=== PATIENT | female | born 1975 | race Caucasian/White ===

== ENCOUNTER → 2019-05-23 16:59 | Outpatient (CLI) | payer BC, SELFPAY ==
[2019-05-23 17:56] LABS: Absolute Lymphocyte Count 3.26 X10^3/uL (0.83-4.51); Absolute Neutrophil Count 11.2 X10^3/uL (2.0-7.7); Basophil# 0.05 X10^3/uL; Basophil% 0.3 % (0-1); Eosinophil# 0.19 X10^3/uL; Eosinophils% 1.2 % (0-5); Hematocrit 37.6 % (37-47); Hemoglobin 11.6 g/dL (12.0-15.0); Lymphocyte # 3.26 X10^3/ul (4.0); Lymphocyte % 20.7 % (19-41); Mean Corp Hgb Conc 30.9 g/dL (32-36); Mean Corpuscular Hgb 22.4 pg (27.0-32.0); Mean Corpuscular Volume 72.6 fL (81-99); Mean Platelet Vol. 9.4 fl (6.2-12.0); Monocyte# 0.92 X10^3/uL; Monocyte% 5.8 % (0-10); NRBC Flagged by Analyzer 0 % (0-5); Neutrophil # 11.22 X10^3/uL (2.7-7.7); Neutrophil % 71.4 % (47-70); Platelet Count 495 K/mm3 (150-450); RBC Distribution Width CV 14.5 % (11.6-14.6); RBC Distribution Width SD 37.2 fl (35.1-43.9); Red Blood Count 5.18 M/mm3 (4.2-5.4); White Blood Count 15.7 K/mm3 (4.4-11.0)
[2019-05-23 18:35] LABS: BUN 10 mg/dL (7-18); Creatinine, Serum 0.84 mg/dL (0.55-1.02); Glucose 95 mg/dL (74-106)
[2019-05-23 18:36] LABS: AST(SGOT) 12 U/L (15-37); Alanine Aminotransfer ALT/SGPT 20 U/L (13-56); Alkaline Phosphatase 75 U/L (45-117); Anion Gap 7 (5-15); BUN/Creat Ratio 11.9 RATIO (10-20); Bilirubin, Direct 0.09 mg/dL (0.00-0.30); Calcium,Total 9.3 mg/dL (8.5-10.1); Chloride 102 mmol/L (98-107); Cholesterol 129 mg/dL (200); EST Glomerular Filtration Rate 78 mL/min (>60); Est Glom Filt Rate - Afr Amer 95 mL/min (>60); Globulin 4.2 g/dL (2.2-4.2); High Density Lipoprotein 45 mg/dL; Potassium 3.3 mmol/L (3.5-5.1); Protein, Total 8.2 g/dL (6.4-8.2); Sodium Level 138 mmol/L (136-145); Triglycerides 117 mg/dL; Very Low Density Lipoprotein 23 mg/dL (5-40)
[2019-05-24 10:47] LABS: Hepatitis B Surface Antibody Non-Reactive; Hepatitis B Surface Antigen Non-Reactive (Nonreactive); Hepatitis C Antibody Non-Reactive (Nonreactive)
[2019-05-26 03:07] LABS: QNTFERON TB Mitogen Value > 10.00 IU/mL (.); QNTFERON TB Nil Value 0.11 IU/mL (.); QNTFERON TB1+ Ag Value 0.13 IU/mL (.)
[2019-05-26 09:53] LABS: Hepatitis B Core Ab Total Negative (Negative); QNTIFERON TB Positive Criteria Negative (Negative)
== END ==
PROVIDERS: Referring Provider Dermatology Pediatric Dermatology; Visit Provider Dermatology Pediatric Dermatology
DX: L40.0 Psoriasis vulgaris (principal); L40.59 Other psoriatic arthropathy; Z79.899 Other long term (current) drug therapy
CPT/HCPCS: 36415; 80053; 80061; 82248; 85025; 86480; 86704; 86706; 86803; 87340

== ENCOUNTER → 2020-04-08 16:26 | Outpatient (CLI) | payer BC, SELFPAY ==
[2020-04-11 03:07] LABS: QNTFERON TB Mitogen Value > 10.00 IU/mL (.); QNTFERON TB Nil Value 0.01 IU/mL (.); QNTFERON TB1+ Ag Value 0.04 IU/mL (.); QNTFERON TB2+ Ag Value 0.03 IU/mL (.)
[2020-04-11 08:22] LABS: QNTIFERON TB Positive Criteria Negative (Negative)
== END ==
PROVIDERS: Referring Provider Dermatology; Visit Provider Dermatology
DX: L40.0 Psoriasis vulgaris (principal); L40.59 Other psoriatic arthropathy; Z79.899 Other long term (current) drug therapy
CPT/HCPCS: 36415; 86480

== ENCOUNTER → 2022-06-01 | Outpatient (CLI) | payer BC, SELFPAY ==
[2022-06-01 15:54] LABS: AST(SGOT) 17 U/L (15-37); Alanine Aminotransfer ALT/SGPT 32 U/L (13-56); Albumin, Serum 3.9 g/dL (3.2-5.0); Alkaline Phosphatase 75 U/L (45-117); Anion Gap 8 (5-15); BUN 18 mg/dL (7-18); BUN/Creat Ratio 20.3 RATIO (10-20); Calcium,Total 9.5 mg/dL (8.5-10.1); Chloride 97 mmol/L (98-107); Creatinine, Serum 0.89 mg/dL (0.55-1.02); EST Glomerular Filtration Rate 72 mL/min (>60); Est Glom Filt Rate - Afr Amer 88 mL/min (>60); Globulin 3.8 g/dL (2.2-4.2); Glucose 166 mg/dL (74-106); Potassium 3.3 mmol/L (3.5-5.1); Protein, Total 7.7 g/dL (6.4-8.2); Sodium Level 138 mmol/L (136-145)
[2022-06-01 17:40] LABS: Absolute Lymphocyte Count 2.58 X10^3/uL (0.83-4.51); Absolute Neutrophil Count 6.6 X10^3/uL (2.0-7.7); Basophil# 0.05 X10^3/uL; Basophil% 0.5 % (0-1); Eosinophil# 0.24 X10^3/uL; Eosinophils% 2.4 % (0-5); Hematocrit 40.2 % (37-47); Hemoglobin 12.7 g/dL (12.0-15.0); Lymphocyte # 2.58 X10^3/ul (0.83-4.51); Lymphocyte % 25.4 % (19-41); Mean Corp Hgb Conc 31.6 g/dL (32-36); Mean Corpuscular Hgb 26.2 pg (27.0-32.0); Mean Corpuscular Volume 82.9 fL (81-99); Mean Platelet Vol. 10.1 fl (6.2-12.0); Monocyte# 0.69 X10^3/uL; Monocyte% 6.8 % (0-10); NRBC Flagged by Analyzer 0.2 % (0-5); Neutrophil # 6.58 X10^3/uL (2.7-7.7); Neutrophil % 64.6 % (47-70); Platelet Count 349 K/mm3 (150-450); RBC Distribution Width CV 12.2 % (11.6-14.6); RBC Distribution Width SD 36.9 fl (35.1-43.9); Red Blood Count 4.85 M/mm3 (4.2-5.4); White Blood Count 10.2 K/mm3 (4.4-11.0)
[2022-06-03 18:07] LABS: QNTFERON TB Mitogen Value > 10.00 IU/mL (.); QNTFERON TB Nil Value 0 IU/mL (.); QNTFERON TB1+ Ag Value 0.04 IU/mL (.); QNTFERON TB2+ Ag Value 0.03 IU/mL (.)
[2022-06-03 20:56] LABS: Hepatitis B Core Ab Total Negative (Negative); QNTIFERON TB Positive Criteria Negative (Negative)
== END | disposition home or self-care (01) ==
LOC: MTLAB 12:36
PROVIDERS: PCP Nurse Practitioner Family; Referring Provider Dermatology Pediatric Dermatology; Visit Provider Dermatology Pediatric Dermatology
DX: L40.0 Psoriasis vulgaris (principal)
CPT/HCPCS: 36415; 80053; 85025; 86480; 86704

== ENCOUNTER → 2023-07-09 | Outpatient (CLI) | payer BC, SELFPAY ==
--- OUTSIDE RECORDS SUMMARY | 2023-07-09 16:37 | XMS RPT_ITS | CCD ---
Author Name Unknown Address [id number] [place] [address] Organization [facility] Care Team Providers Care Senior Marketing Manager Name Role Phone HEMA ONOFRE Gaurav Unavailable Unavailable LIZ MALAVE Unavailable Unavailable Unavailable Primary Care Provider Magaly Malave MD, Liz Reina Primary Care Provider [phone] Noling PEARL CUTTER.BODY PRESS OPERATORLiz Primary Care Provider Noling PEARL CUTTER.BODY PRESS OPERATORLiz Primary Care Provider Alok Cruz MD, Hodan Sena Unavailable [phone] Noling PEARL CUTTER.BODY PRESS OPERATORLiz Primary Care Provider Hodan Mejia MD Unavailable Steven Denis MD Unavailable NOLING, LIZ L Attending Unavailable NOLING, LIZ L Primary Care Unavailable STEVEN DENIS Referring Unavailable NOLING, LIZ L Primary Care Unavailable NOLING, LIZ L Attending Unavailable NOLING, LIZ L Primary Care Unavailable NOLING, LIZ L Primary Care Unavailable NOLING, LIZ L Attending Unavailable NOLING, LIZ L Primary Care Unavailable NOLING, LIZ L Referring Unavailable NOLING, LIZ L Primary Care Unavailable STEVEN DENIS Referring Unavailable NOLING, LIZ L Primary Care Unavailable TREVON ARTHUR Referring Unavailable NOLING, LIZ L Primary Care Unavailable NOLING, LIZ L Primary Care Unavailable NOLING, LIZ L Referring Unavailable NOLING, LIZ L Primary Care Unavailable NOLING, LIZ L Referring Unavailable NOLING, LIZ L Primary Care Unavailable STEVEN DENIS Referring Unavailable NOLING, LIZ L Primary Care Unavailable Allergies Allergy Classification Reported Allergen(s) Allergy Type Date of Onset Reaction(s) Facility (20 sources) Lisinopril; Translations: [LISINOPRIL] Drug Allergy 04-16-2020 Cough [facility] (20 sources) SUMAtriptan; Translations: [SUMATRIPTAN SUCCINATE] Drug Allergy 04-08-2016 Anaphylaxis [facility] Medications Current Medications Medication Drug Class(es) Dates Sig (Normalized) Sig (Original) amoxicillin 875 mg / clavulanate 125 mg oral tablet (1 source) Penicillin-class Antibacterial Start: 04-16-2022 End: 04-23-2022 take 1 tablet by mouth twice daily amoxicillin-clav ulanic acid (AUGMENTIN) 875-125 mg per tablet Take 1 tablet by mouth twice daily for 7 days. 14 tablet 0 04/16/2022 04/23/2022 Active Completed/Discontinued Medications Medication Drug Class(es) Dates Sig (Normalized) Sig (Original) [id number] 200 actuat albuterol 0.09 mg/actuat metered dose inhaler (16 sources) beta2-Adrenergic Agonist Start: 04-20-2022 End: 04-23-2023 take 2 puff(s) by inhalation every four hours as needed for wheezing albuterol HFA (PROVENTIL HFA, VENTOLIN HFA) 90 mcg/actuation inhaler Inhale 2 Puffs as instructed every 4 hours as needed for wheezing/shortness of breath. 1 Each 1 04/20/2022 04/23/2023 Discontinued Problems Active Problems Problem Classification Problem Date Documented Date Episodic/Chronic Adjustment disorders (17 sources) Reactive depression (situational); Translations: [Adjustment disorder with depressed mood] Onset: 02-16-2020 05-01-2022 Chronic Anxiety disorders (20 sources) Generalized anxiety disorder; Translations: [Generalized anxiety disorder] Onset: 04-08-2016 Chronic Attention-deficit, conduct, and disruptive behavior disorders (5 sources) Adult attention deficit hyperactivity disorder ; Translations: [Attention-deficit hyperactivity disorder, unspecified type] Chronic Attention-deficit, conduct, and disruptive behavior disorders (20 sources) Attention deficit hyperactivity disorder, predominantly inattentive type; Translations: [Attention-deficit hyperactivity disorder, predominantly inattentive type] Onset: 04-29-2018 Chronic Attention-deficit, conduct, and disruptive behavior disorders (1 source) Attention-deficit hyperactivity disorder, predominantly inattentive type; Translations: [Attention deficit hyperactivity disorder (ADHD), predominantly inattentive type] Onset: 05-01-2022 Chronic Chronic ulcer of skin (1 source) Pressure ulcer of unspecified ankle, unspecified stage; Translations: [Controlled type 2 diabetes mellitus with pressure ulcer of ankle (HCC)] Onset: 05-12-2023 Chronic Deficiency and other anemia (19 sources) Iron deficiency anemia; Translations: [Iron deficiency anemia, unspecified] Onset: 04-08-2016 Episodic Diabetes mellitus with complications (20 sources) Type 2 diabetes mellitus; Translations: [Type 2 diabetes mellitus with hyperglycemia] Onset: 12-31-2016 Chronic Diabetes mellitus without complication (2 sources) Type 2 diabetes mellitus without complications; Translations: [Controlled type 2 diabetes mellitus with pressure ulcer of ankle (HCC)] Onset: 08-01-2022 Chronic Disorders of lipid metabolism (20 sources) Mixed hyperlipidemia; Translations: [Mixed hyperlipidemia] Onset: 04-08-2016 Chronic Essential hypertension (20 sources) Benign essential hypertension; Translations: [Essential (primary) hypertension] Onset: 08-22-2019 Chronic Joint disorders and dislocations; trauma-related (17 sources) Chondromalacia of patella; Translations: [Chondromalacia patellae, unspecified knee] Onset: 04-08-2016 05-01-2022 Chronic Miscellaneous mental health disorders (20 sources) Binge eating disorder; Translations: [Binge eating disorder] Onset: 04-29-2018 Chronic Nutritional deficiencies (20 sources) Vitamin D deficiency; Translations: [Vitamin D deficiency, unspecified] Onset: 12-01-2021 Chronic Other circulatory disease (17 sources) Raynaud's disease; Translations: [Raynaud's syndrome without gangrene] Onset: 04-08-2016 05-01-2022 Chronic Other connective tissue disease (1 source) Muscle spasm of cervical muscle of neck; Translations: [Other muscle spasm] Episodic Other endocrine disorders (17 sources) Polycystic ovary; Translations: [Polycystic ovarian syndrome] Onset: 04-08-2016 05-01-2022 Chronic Other inflammatory condition of skin (17 sources) Pustular psoriasis; Translations: [Generalized pustular psoriasis] Onset: 12-26-2018 05-01-2022 Chronic Other nutritional; endocrine; and metabolic disorders (19 sources) Severe obesity; Translations: [Morbid (severe) obesity due to excess calories] Chronic Other nutritional; endocrine; and metabolic disorders (17 sources) Body mass index 40+ - severely obese; Translations: [Body mass index (BMI) 40.0-44.9, adult] Onset: 11-25-2018 05-01-2022 Chronic Other nutritional; endocrine; and metabolic disorders (1 source) Morbid (severe) obesity due to excess calories; Translations: [Class 2 severe obesity due to excess calories with serious comorbidity and body mass index (BMI) of 35.0 to 35.9 in adult] Onset: 04-23-2023 Chronic Other nutritional; endocrine; and metabolic disorders (1 source) Body mass index (BMI) 35.0-35.9, adult; Translations: [Class 2 severe obesity due to excess calories with serious comorbidity and body mass index (BMI) of 35.0 to 35.9 in adult] Onset: 04-23-2023 Chronic Other nutritional; endocrine; and metabolic disorders (1 source) Body mass index (BMI) 40.0-44.9, adult; Translations: [Body mass index 40.0-44.9, adult ([facility])] Onset: 05-01-2022 Chronic Other upper respiratory infections (1 source) Acute upper respiratory infection, unspecified; Translations: [Upper respiratory tract infection, unspecified type] Onset: 06-18-2023 Episodic Otitis media and related conditions (1 source) Otitis media, unspecified, right ear; Translations: [Acute otitis media, right] Onset: 06-18-2023 Episodic Residual codes; unclassified (18 sources) Obstructive sleep apnea syndrome; Translations: [Obstructive sleep apnea (adult) (pediatric)] Onset: 06-09-2016 Chronic Residual codes; unclassified (17 sources) Primary central sleep apnea; Translations: [Primary central sleep apnea] Onset: 06-17-2016 05-01-2022 Chronic Rheumatoid arthritis and related disease (1 source) Ankylosing spondylitis of unspecified sites in spine; Translations: [Ankylosing spondylitis, unspecified site of spine ([facility])] Onset: 08-06-2022 Chronic Spondylosis; intervertebral disc disorders; other back problems (9 sources) Degeneration of lumbar intervertebral disc; Translations: [Other intervertebral disc degeneration, lumbar region] Onset: 01-29-2023 01-29-2023 Chronic Thyroid disorders (20 sources) Hypothyroidism; Translations: [Hypothyroidism, unspecified] Onset: 04-08-2016 Chronic Unclassified (1 source) Pain in other specified joint; Translations: [Pain in other specified joint] Onset: 08-06-2022 Unclassified (1 source) Acute midline low back pain without sciatica; Translations: [Acute midline low back pain without sciatica] Onset: 06-19-2022 Past or Other Problems Problem Classification Problem Date Documented Date Episodic/Chronic Deficiency and other anemia (1 source) Iron deficiency anemia, unspecified; Translations: [Iron deficiency anemia, unspecified iron deficiency anemia type] Onset: 05-01-2022 Episodic Fluid and electrolyte disorders (20 sources) Hypokalemia; Translations: [Hypokalemia] Onset: 02-19-2020 Episodic Genitourinary symptoms and ill-defined conditions (18 sources) Microalbuminuria; Translations: [Proteinuria, unspecified] Onset: 11-07-2019 Episodic Other aftercare (12 sources) Patient encounter status; Translations: [Encounter for therapeutic drug level monitoring] Onset: 04-29-2018 05-01-2022 Episodic Other connective tissue disease (17 sources) Bilateral plantar fasciitis; Translations: [Plantar fascial fibromatosis] Onset: 06-22-2017 05-01-2022 Episodic Other connective tissue disease (15 sources) Pain of bilateral hands; Translations: [Pain in right hand] Onset: 06-19-2022 Episodic Other connective tissue disease (1 source) Pain in right hand; Translations: [Bilateral hand pain] Onset: 06-19-2022 Episodic Other connective tissue disease (1 source) Pain in left hand; Translations: [Bilateral hand pain] Onset: 06-19-2022 Episodic Other non-traumatic joint disorders (15 sources) Hip pain; Translations: [Pain in right hip] Onset: 06-19-2022 Episodic Other non-traumatic joint disorders (8 sources) Shoulder pain; Translations: [Pain in right shoulder] Onset: 06-19-2022 06-19-2022 Episodic Other non-traumatic joint disorders (6 sources) Pain in right shoulder; Translations: [Pain in joint, shoulder region] Onset: 06-19-2022 06-19-2022 Episodic Other non-traumatic joint disorders (1 source) Pain in right hip; Translations: [Bilateral hip pain] Onset: 06-19-2022 Episodic Other non-traumatic joint disorders (1 source) Pain in left hip; Translations: [Bilateral hip pain] Onset: 06-19-2022 Episodic Other screening for suspected conditions (not mental disorders or infectious disease) (1 source) Encounter for screening mammogram for malignant neoplasm of breast; Translations: [Encounter for screening mammogram for breast cancer] Onset: 11-06-2022 Episodic Residual codes; unclassified (17 sources) Family history of malignant neoplasm of gastrointestinal tract; Translations: [Family history of malignant neoplasm of digestive organs] Onset: 04-08-2016 05-01-2022 Episodic Residual codes; unclassified (1 source) Edema Onset: 08-21-2022 Episodic Spondylosis; intervertebral disc disorders; other back problems (15 sources) Acute low back pain; Translations: [Acute midline low back pain without sciatica] Onset: 06-19-2022 Episodic Viral infection (17 sources) Plane wart; Translations: [Other viral warts] Onset: 10-06-2021 05-01-2022 Episodic Results Test Name Value Interpretation Reference Range Facil ity Vital Signs Date Time Vital Sign Value Performing Clinician Brandon [email or web address] 04-23-2023 12:06-0500 Body weight 94.62 kg Liz Whitfield PEARL CUTTER.TAINA Work Phone: [facility] 04-23-2023 12:06-0500 Diastolic blood pressure 76 mm[Hg] Liz Whitfield PEARL CUTTER.TAINA Work Phone: [facility] 04-23-2023 12:06-0500 Heart rate 75 /min Liz Whitfield PEARL CUTTER.BODY PRESS OPERATOR Work Phone: [facility] 04-23-2023 12:06-0500 SaO2% (BldA) [Mass fraction] 98 % Lizlauryn Whitfield PEARL CUTTER.TAINA Work Phone: [facility] 04-23-2023 12:06-0500 Systolic blood pressure 100 mm[Hg] Liz Whitfield PEARL CUTTER.TAINA Work Phone: [facility] 01-29-2023 10:49-0400 Body height 162.6 cm Liz Noling PEARL CUTTER.BODY PRESS OPERATOR Work Phone: [facility] 01-29-2023 10:49-0400 Body temperature 98.29 [degF] Liz Noling PEARL CUTTER.BODY PRESS OPERATOR Work Phone: [facility] 01-29-2023 10:49-0400 Body weight 114.31 kg Liz Noling PEARL CUTTER.BODY PRESS OPERATOR Work Phone: [facility] 01-29-2023 10:49-0400 Diastolic blood pressure 68 mm[Hg] Liz Noling PEARL CUTTER.BODY PRESS OPERATOR Work Phone: [facility] 01-29-2023 10:49-0400 Heart rate 76 /min Liz Noling PEARL CUTTER.BODY PRESS OPERATOR Work Phone: [facility] 01-29-2023 10:49-0400 SaO2% (BldA) [Mass fraction] 97 % Liz Noling PEARL CUTTER.BODY PRESS OPERATOR Work Phone: [facility] 01-29-2023 10:49-0400 Systolic blood pressure 110 mm[Hg] Liz Noling PEARL CUTTER.BODY PRESS OPERATOR Work Phone: [facility] 05-01-2022 08:04-0500 Body height 162.6 cm Liz Noling PEARL CUTTER.BODY PRESS OPERATOR Work Phone: [facility] 05-01-2022 08:04-0500 Body weight 115.67 kg Liz Noling PEARL CUTTER.BODY PRESS OPERATOR Work Phone: [facility] 05-01-2022 08:04-0500 Diastolic blood pressure 76 mm[Hg] Liz Noling PEARL CUTTER.BODY PRESS OPERATOR Work Phone: [facility] 05-01-2022 08:04-0500 Heart rate 78 /min Liz Noling PEARL CUTTER.BODY PRESS OPERATOR Work Phone: [facility] 05-01-2022 08:04-0500 SaO2% (BldA) [Mass fraction] 97 % Liz Noling PEARL CUTTER.BODY PRESS OPERATOR Work Phone: [facility] 05-01-2022 08:04-0500 Systolic blood pressure 120 mm[Hg] Liz Noling PEARL CUTTER.BODY PRESS OPERATOR Work Phone: [facility] 11-07-2021 17:04-0400 Body temperature 98.1 [degF] Liz Noling PEARL CUTTER.BODY PRESS OPERATOR Work Phone: [facility] 11-07-2021 17:04-0400 Body weight 109.77 kg Liz Noling PEARL CUTTER.BODY PRESS OPERATOR Work Phone: [facility] 11-07-2021 17:04-0400 Diastolic blood pressure 64 mm[Hg] Liz Noling PEARL CUTTER.BODY PRESS OPERATOR Work Phone: [facility] 11-07-2021 17:04-0400 Heart rate 85 /min Liz Noling PEARL CUTTER.BODY PRESS OPERATOR Work Phone: [facility] 11-07-2021 17:04-0400 SaO2% (BldA) [Mass fraction] 98 % Liz Noling PEARL CUTTER.BODY PRESS OPERATOR Work Phone: [facility] 11-07-2021 17:04-0400 Systolic blood pressure 118 mm[Hg] Liz Noling PEARL CUTTER.BODY PRESS OPERATOR Work Phone: [facility] Encounters Encounter Date Encounter Type Care Provider Facility Start: 06-18-2023 End: 06-18-2023 ambulatory LIZ L NOLING Facility:[id number] Start: 05-12-2023 End: 05-12-2023 ambulatory LIZ L NOLING Facility:[id number] Start: 04-23-2023 End: 04-23-2023 ambulatory LIZ L NOLING Facility:[id number] Start: 04-23-2023 End: 04-23-2023 Office outpatient visit 25 minutes Liz L Noling PEARL CUTTER.BODY PRESS OPERATOR Work Phone: [facility] Procedures Date Procedure Procedure Detail Performing Clinician Start: 11-06-2022 Mammography [facility] Provid er Start: 06-23-2022 Radex hips bilateral with pelvis minimum 5 views Liz L Noling PEARL CUTTER.BODY PRESS OPERATOR Work Phone: Start: 12-25-2021 Colonoscopy Liz Kylerhandy carpio APRN.TAINA Work Phone: Start: 09-30-2020 Mammography Liz Kylerhandy carpio APRN.TAINA Work Phone: Plan of Treatment Date Care Activity Detail Author Start: 12-01-2026 LIPID SCREEN LIPID SCREEN [facility] Start: 11-07-2026 HPV TESTING HPV TESTING [facility] Start: 11-07-2026 PAP TESTING PAP TESTING [facility] Start: 04-02-2025 DIABETES SCREEN DIABETES SCREEN [facility] Start: 12-24-2024 DIABETES SCREEN DIABETES SCREEN [facility] Start: 12-01-2024 DIABETES SCREEN DIABETES SCREEN [facility] Start: 04-23-2024 Annual PCP Team Brand Planner michael Disease Visit Annual PCP Team Chronic Disease Visit [facility] Start: 04-23-2024 BP Controlled (<130/80) BP Controlle d (<130/80) [facility] Start: 04-20-2024 Hepatitis C antibody , confirmatory test Dilated Retinal Exam [facility] Start: 01-30-2024 ANNUAL PCP TEAM BUDGET ASSISTANT MICHAEL DISEASE VISIT ANNUAL PCP TEAM CHRONIC DISEASE VISIT [facility] Start: 01-30-2024 BP CONTROLLED (<130/80) BP CONTROLLE D (<130/80) [facility] Start: 12-12-2023 Influenza vaccination Influenza Vacc ine (#1) [facility] Payers Date Payer Category Payer Unknown [employer] PPO OOS [id number] 2021-Present [phone] [address] [place] [address] PPO [id number] 2021 Unknown [employer] PPO OOS [id number] 2021-Present [phone] [address] [place] [address] PPO [id number] 2021 Unknown [id number] 2018 Unknown [id number] Social History Date Type Detail Facility Tobacco smoking stat us MDIS Tobacco smoking consumption unknown [facility] Start: 1975 Sex Assigned At Not on file [facility] Start: 10-28-2021 End: 04-16-2022 Exposure to SARS-CoV-2 (event) Not sure [facility] Start: 01-14-2022 End: 04-16-2022 Tobacco smoking status NHIS Ex-smoker [facility] History of tobacco use Current smoker [facility] Start: 04-16-2022 Tobacco use and exposure Smoke less tobacco non-user [facility] Start: 04-16-2022 End: 04-23-2023 Alcohol intake Lifetime non-drinker (finding) [facility] Start: 04-21-2022 End: 05-01-2022 Exposure to SARS-CoV-2 (event) Yes [facility] Start: 11-06-2022 End: 01-29-2023 History of Social function [facility] Start: 11-06-2022 End: 01-29-2023 Tobacco use panel [facility] National Score (1-10 0), lower number is lower risk 69 [facility] Start: 1975 Sex Assigned At Female C [facility] Start: 04-16-2023 Gender identity Identifies as female gender (finding) [facility] Start: 04-16-2023 Sexual orientation Heterosexual (celso stuart) [facility] Medical Equipment Procedure Code Equipment Code Equipment Origin al Text Equipment Identifier Dates once daily. Start: 05-04-2022 Clinical Notes 11-25-2018 to 06-18-2023 Patient InstructionsLiz Whitfield APRN.CNP - 04/23/2023 12:38 PM ESTTelephone Encounter - Angela Marie MA - 04/09/2023 4:14 PM EDTPatient InstructionsPatient Instructions Note Date & Type Note Facility 06-18-2023 Note HNO ID: [id number] Author: LIZ WHITFIELD APRN.CNP Service: ? Author Type: Nurse Practitioner Type: Progress Notes Filed: 06/18/2023 15:52 Note Text: Lamont Rosenthal is a 47 year old female who presents with Acute Visit (Pt said sx's started in April. She wasn't able to taste or smell. She has yellow/green thick mucus,headache,sore throat white white spots,congestion and slight cough. She is using Flonase. ) Lamont presents today with c/o sinus congestion, nasal drainage, headache. Denies cough, N/V/D. Nasal drainage clear/yellow/green. Denies fever/chills. Tested negative for COVID about 3 days ago. Has had a lot of co-workers out with COVID. The history is provided by the patient. Hemoglobin A1C Date Value Ref Range Status 05/12/2023 5.9 (H) 4.3 - 5.6 % Final Comment: [place] [employer] guidelines indicate that patients with HgbA1c in the range 5.7-6.4% are at increased risk for development of diabetes, and intervention by lifestyle modification may be beneficial. HgbA1c greater or equal to 6.5% is considered diagnostic of diabetes. 01/15/2023 5.8 4.3 - 6.0 % Final Comment: [place] [employer] guidelines indicate that patients with HgbA1c in the range 5.7-6.4% are at increased risk for development of diabetes, and intervention by lifestyle modification may be beneficial. HgbA1c greater or equal to 6.5% is considered diagnostic of diabetes. TSH Date Value Ref Range Status 05/12/2023 0.293 (L) 0.358 - 3.740 mIU/L Final Comment: 3rd generation ultra sensitive TSH. 03/26/2023 0.053 (L) 0.358 - 3.740 mIU/L Final Comment: 3rd generation ultra sensitive TSH. Albumin, Urine Random Date Value Ref Range Status 10/23/2022 8.0 0.0 - 19.0 mg/L Final Microalbumin, Urine Random Date Value Ref Range Status 09/29/2021 10.0 0.0 - 19.0 MG/L Final PAST MEDICAL HISTORY Diagnosis Date Depression Diabetes (HCC) SHAVON (generalized anxiety disorder) Hypertension Obesity CHICHI (obstructive sleep apnea) Thyroid disease ACTIVE PROBLEM LIST Type 2 Diabetes Mellitus With Hyperglycemia (Hcc) Vitamin D Deficiency, Unspecified Attention Deficit Hyperactivity Disorder (Adhd), Predominantly Inattentive Type Benign Essential Hypertension Binge Eating Disorder Chondromalacia of Patella Diabetic Peripheral Neuropathy (Hcc) Family History of Malignant Neoplasm of Gastrointestinal Tract Flat Wart Generalized Anxiety Disorder Obsessive-Compulsive Disorder Hypokalemia Hyperlipidemia Idiopathic Central Sleep Apnea Iron Deficiency Anemia Microalbuminuria Plantar Fasciitis, Bilateral Polycystic Ovaries Pustular Psoriasis Raynaud's Syndrome Goiter Hypothyroidism Unspecified Situational Depression Sleep Apnea, Obstructive Class 2 severe obesity due to excess calories with serious comorbidity and body mass index (BMI) of 35.0 to 35.9 in adult Bilateral Hip Pain Bilateral Hand Pain Acute Pain of Right Shoulder Acute Midline Low Back Pain Without Sciatica Ddd (Degenerative Disc Disease), Lumbar Current Outpatient Medications Medication Sig Dispense Refill levothyroxine (SYNTHROID) 125 mcg tablet Take 1 tablet by mouth every afternoon. MOUNJARO 10 mg/0.5 mL pen injector Inject 10 mg subcutaneously one time a week. lisdexamfetamine (VYVANSE) 40 mg capsule Take 1 capsule by mouth once daily for 30 days. 30 capsule 0 busPIRone (BUSPAR) 15 mg tablet Take 1 tablet by mouth once daily 30 tablet 3 amoxicillin (AMOXIL) 500 mg capsule Take 1 capsule by mouth as directed. gabapentin (NEURONTIN) 100 mg capsule Take 1 capsule by mouth at bedtime 30 capsule 5 triamterene-hydroCHLOROthiazide (MAXZIDE) 75-50 mg per tablet Take 1 tablet by mouth once daily 90 tablet 3 ezetimibe (ZETIA) 10 mg tablet Take 1 tablet by mouth once daily 30 tablet 5 meloxicam (MOBIC) 15 mg tablet Take 1 tablet by mouth once daily as needed. 30 tablet 1 losartan (COZAAR) 25 mg tablet Take 1 tablet by mouth once daily 30 tablet 5 sertraline (ZOLOFT) 100 mg tablet Take 1 tablet by mouth once daily 30 tablet 5 simvastatin (ZOCOR) 20 mg tablet Take 1 tablet by mouth daily at bedtime. 90 tablet 1 metFORMIN (GLUCOPHAGE) 500 mg tablet Take 1 tablet by mouth twice daily. PREMIER TEST STRIP test strip once daily. benzonatate (TESSALON PERLES) 100 mg capsule Take 2 capsules by mouth three times daily as needed for cough. 30 capsule 1 clobetasol (TEMOVATE) 0.05 % cream clobetasol 0.05 % topical cream potassium chloride (K-TAB) 10 mEq tablet Take 2 tablets by mouth twice daily. 180 tablet 3 vitamin B complex (B COMPLEX 1 ORAL) Take 1 tablet by mouth once daily. ascorbic acid, vitamin C, (VITAMIN C) 500 mg tablet Take 1 tablet by mouth once daily. amitriptyline (ELAVIL) 25 mg tablet Take 1 tablet by mouth daily at bedtime. aspirin, enteric coated (ASPIRIN, ENTERIC COATED) 81 mg EC tablet Take 1 tablet by mouth once daily. betamethasone dipropionate 0 (more content not included)... 04-23-2023 Note HNO ID: [id number] Author: Liz Whitfield APRN.BODY PRESS OPERATOR Service: ? Author Type: Nurse Practitioner Type: Progress Notes Filed: 04/23/2023 8:12 PM Note Text: Lamont Rosenthal is a 47 year old female who presents with Follow Up (3 month /Patient denies flu vaccine ) Lamont presents today for 3 mo f/u HTN, HLD, ADHD, anxiety, DDD, CHICHI. ADHD and BED- doing well on Vyvanse. States dose is adequate. On Munjaro from endocrinology. Has been working on losing weight intentionally, watching diet and walking more. Continues to have significant joint pain, unchanged with weight loss. Not taking meloxicam because she is worried about SE. When she has taken it, it does work well for her. HTN- has not been checking BP at home, but has started noticing some dizziness at times since losing a lot of weight. CHICHI- compliant on CPAP, working well. Anxiety- doing very well right now The history is provided by the patient. Hemoglobin A1C Date Value Ref Range Status 01/15/2023 5.8 4.3 - 6.0 % Final Comment: [place] [employer] guidelines indicate that patients with HgbA1c in the range 5.7-6.4% are at increased risk for development of diabetes, and intervention by lifestyle modification may be beneficial. HgbA1c greater or equal to 6.5% is considered diagnostic of diabetes. 10/23/2022 6.2 (H) 4.3 - 6.0 % Final Comment: [place] [employer] guidelines indicate that patients with HgbA1c in the range 5.7-6.4% are at increased risk for development of diabetes, and intervention by lifestyle modification may be beneficial. HgbA1c greater or equal to 6.5% is considered diagnostic of diabetes. TSH Date Value Ref Range Status 03/26/2023 0.053 (L) 0.358 - 3.740 mIU/L Final Comment: 3rd generation ultra sensitive TSH. 01/15/2023 0.048 (L) 0.358 - 3.740 mIU/L Final Comment: 3rd generation ultra sensitive TSH. Albumin, Urine Random Date Value Ref Range Status 10/23/2022 8.0 0.0 - 19.0 mg/L Final Microalbumin, Urine Random Date Value Ref Range Status 09/29/2021 10.0 0.0 - 19.0 MG/L Final PAST MEDICAL HISTORY Diagnosis Date Depression Diabetes ([facility]) SHAVON (generalized anxiety disorder) Hypertension Obesity CHICHI (obstructive sleep apnea) Thyroid disease ACTIVE PROBLEM LIST Type 2 Diabetes Mellitus With Hyperglycemia ([facility]) Vitamin D Deficiency, Unspecified Attention Deficit Hyperactivity Disorder (Adhd), Predominantly Inattentive Type Benign Essential Hypertension Binge Eating Disorder Body Mass Index 40.0-44.9, Adult ([facility]) Chondromalacia of Patella Diabetic Peripheral Neuropathy ([facility]) Family History of Malignant Neoplasm of Gastrointestinal Tract Flat Wart Generalized Anxiety Disorder Obsessive-Compulsive Disorder Hypokalemia Hyperlipidemia Idiopathic Central Sleep Apnea Iron Deficiency Anemia Microalbuminuria Plantar Fasciitis, Bilateral Polycystic Ovaries Pustular Psoriasis Raynaud's Syndrome Goiter Hypothyroidism Unspecified Situational Depression Sleep Apnea, Obstructive Class 3 Severe Obesity Due to Excess Calories With Serious Comorbidity and Body Mass Index (Bmi) of 40.0 to 44.9 in Adult ([facility]) Bilateral Hip Pain Bilateral Hand Pain Acute Pain of Right Shoulder Acute Midline Low Back Pain Without Sciatica Ddd (Degenerative Disc Disease), Lumbar Current Outpatient Medications Medication Sig Dispense Refill amoxicillin (AMOXIL) 500 mg capsule Take 1 capsule by mouth as directed. busPIRone (BUSPAR) 15 mg tablet Take 1 tablet by mouth every afternoon. gabapentin (NEURONTIN) 100 mg capsule Take 1 capsule by mouth at bedtime 30 capsule 5 lisdexamfetamine (VYVANSE) 40 mg capsule Take 1 capsule by mouth once daily for 30 days. 30 capsule 0 triamterene-hydroCHLOROthiazide (MAXZIDE) 75-50 mg per tablet Take 1 tablet by mouth once daily 90 tablet 3 ezetimibe (ZETIA) 10 mg tablet Take 1 tablet by mouth once daily 30 tablet 5 MOUNJARO 7.5 mg/0.5 mL pen injector MOUNJARO 5 mg/0.5 mL pen injector MOUNJARO 2.5 mg/0.5 mL pen injector meloxicam (MOBIC) 15 mg tablet Take 1 tablet by mouth once daily as needed. 30 tablet 1 losartan (COZAAR) 25 mg tablet Take 1 tablet by mouth once daily 30 tablet 5 sertraline (ZOLOFT) 100 mg tablet Take 1 tablet by mouth once daily 30 tablet 5 simvastatin (ZOCOR) 20 mg tablet Take 1 tablet by mouth daily at bedtime. 90 tablet 1 metFORMIN (GLUCOPHAGE) 500 mg tablet Take 1 tablet by mouth twice daily. levothyroxine (SYNTHROID) 175 mcg tablet TAKE 1 TABLET BY MOUTH ONCE DAILY IN THE MORNING PREMIER TEST STRIP test strip once daily. benzonatate (TESSALON PERLES) 100 mg capsule Take 2 capsules by mouth three times daily as needed for cough. 30 capsule 1 clobetasol (TEMOVATE) 0.05 % cream clobetasol 0.05 % topical cream potassium chloride (K-TAB) 10 mEq tablet Take 2 tablets by mouth twice daily. 180 tablet 3 vitamin B complex (B COMPLEX 1 ORAL) Take 1 tablet by mouth once ame (more content not included)... 04-23-2023 Instructions Liz Whitfield APRN.CNP - 04/23/2023 1:02 PM EST Have fasting labs drawn Check BP at home at least a few times a week and send message with readings in a few weeks Take meloxicam!!!! It is NOT addictive or habit forming. Continue current meds documented in this encounter [facility] 04-23-2023 History of Presen t illness Narrative Lamont Rosenthal is a 47 year old female who presents with Follow Up (3 month /Patient denies flu vaccine ) Lamont presents today for 3 mo f/u HTN, HLD, ADHD, anxiety, DDD, CHICHI. ADHD and BED- doing well on Vyvanse. States dose is adequate. On Munjaro from endocrinology. Has been working on losing weight intentionally, watching diet and walking more. Continues to have significant joint pain, unchanged with weight loss. Not taking meloxicam because she is worried about SE. When she has taken it, it does work well for her. HTN- has not been checking BP at home, but has started noticing some dizziness at times since losing a lot of weight. CHICHI- compliant on CPAP, working well. Anxiety- doing very well right now The history is provided by the patient. Hemoglobin A1C Date Value Ref Range Status 01/15/2023 5.8 4.3 - 6.0 % Final Comment: [place] [employer] guidelines indicate that patients with HgbA1c in the range 5.7-6.4% are at increased risk for development of diabetes, and intervention by lifestyle modification may be beneficial. HgbA1c greater or equal to 6.5% is considered diagnostic of diabetes. 10/23/2022 6.2 (H) 4.3 - 6.0 % Final Comment: [place] [employer] guidelines indicate that patients with HgbA1c in the range 5.7-6.4% are at increased risk for development of diabetes, and intervention by lifestyle modification may be beneficial. HgbA1c greater or equal to 6.5% is considered diagnostic of diabetes. TSH Date Value Ref Range Status 03/26/2023 0.053 (L) 0.358 - 3.740 mIU/L Final Comment: 3rd generation ultra sensitive TSH. 01/15/2023 0.048 (L) 0.358 - 3.740 mIU/L Final Comment: 3rd generation ultra sensitive TSH. Albumin, Urine Random Date Value Ref Range Status 10/23/2022 8.0 0.0 - 19.0 mg/L Final Microalbumin, Urine Random Date Value Ref Range Status 09/29/2021 10.0 0.0 - 19.0 MG/L Final PAST MEDICAL HISTORY Diagnosis Date Depression Diabetes (HCC) SHAVON (generalized anxiety disorder) Hypertension Obesity CHICHI (obstructive sleep apnea) Thyroid disease ACTIVE PROBLEM LIST Type 2 Diabetes Mellitus With Hyperglycemia ([facility]) Vitamin D Deficiency, Unspecified Attention Deficit Hyperactivity Disorder (Adhd), Predominantly Inattentive Type Benign Essential Hypertension Binge Eating Disorder Body Mass Index 40.0-44.9, Adult ([facility]) Chondromalacia of Patella Diabetic Peripheral Neuropathy ([facility]) Family History of Malignant Neoplasm of Gastrointestinal Tract Flat Wart Generalized Anxiety Disorder Obsessive-Compulsive Disorder Hypokalemia Hyperlipidemia Idiopathic Central Sleep Apnea Iron Deficiency Anemia Microalbuminuria Plantar Fasciitis, Bilateral Polycystic Ovaries Pustular Psoriasis Raynaud's Syndrome Goiter Hypothyroidism Unspecified Situational Depression Sleep Apnea, Obstructive Class 3 Severe Obesity Due to Excess Calories With Serious Comorbidity and Body Mass Index (Bmi) of 40.0 to 44.9 in Adult ([facility]) Bilateral Hip Pain Bilateral Hand Pain Acute Pain of Right Shoulder Acute Midline Low Back Pain Without Sciatica Ddd (Degenerative Disc Disease), Lumbar Current Outpatient Medications Medication Sig Dispense Refill amoxicillin (AMOXIL) 500 mg capsule Take 1 capsule by mouth as directed. busPIRone (BUSPAR) 15 mg tablet Take 1 tablet by mouth every afternoon. gabapentin (NEURONTIN) 100 mg capsule Take 1 capsule by mouth at bedtime 30 capsule 5 lisdexamfetamine (VYVANSE) 40 mg capsule Take 1 capsule by mouth once daily for 30 days. 30 capsule 0 triamterene-hydroCHLOROthiazide (MAXZIDE) 75-50 mg per tablet Take 1 tablet by mouth once daily 90 tablet 3 ezetimibe (ZETIA) 10 mg tablet Take 1 tablet by mouth once daily 30 tablet 5 MOUNJARO 7.5 mg/0.5 mL pen injector MOUNJARO 5 mg/0.5 mL pen injector MOUNJARO 2.5 mg/0.5 mL pen injector meloxicam (MOBIC) 15 mg tablet Take 1 tablet by mouth once daily as needed. 30 tablet 1 losartan (COZAAR) 25 mg tablet Take 1 tablet by mouth once daily 30 tablet 5 sertraline (ZOLOFT) 100 mg tablet Take 1 tablet by mouth once daily 30 tablet 5 simvastatin (ZOCOR) 20 mg tablet Take 1 tablet by mouth daily at bedtime. 90 tablet 1 metFORMIN (GLUCOPHAGE) 500 mg tablet Take 1 tablet by mouth twice daily. levothyroxine (SYNTHROID) 175 mcg tablet TAKE 1 TABLET BY MOUTH ONCE DAILY IN THE MORNING PREMIER TEST STRIP test strip once daily. benzonatate (TESSALON PERLES) 100 mg capsule Take 2 capsules by mouth three times daily as needed for cough. 30 capsule 1 clobetasol (TEMOVATE) 0.05 % cream clobetasol 0.05 % topical cream potassium chloride (K-TAB) 10 mEq tablet Take 2 tablets by mouth twice daily. 180 tablet 3 vitamin B complex (B COMPLEX 1 ORAL) Take 1 tablet by mouth once daily. ascorbic acid, vitamin C, (VITAMIN C) 500 mg tablet Take 1 tablet by mouth once daily. amitriptyline (ELAVIL) 25 mg tablet Take 1 tablet by mouth daily at bedtime. aspirin, enteric coated (ASPIRIN, ENTERIC COATED) 81 mg EC tablet Take 1 tablet by mouth once daily. betamethasone dipropionate 0.05 % ointment Apply 30 g to affected area twice daily as needed. Biotin 10 mg tab Take 1 tablet by mouth once daily. Cholecalciferol, Vitamin D3, 125 mcg (5,000 unit) cap Take 1 capsule by mouth once daily. ferrous sulfate 325 mg (65 mg iron) tablet Take 1 tablet by mouth twice daily. TALTZ AUTOINJECTOR 80 mg/mL pen Inject 1 mL subcutaneously as directed. terbinafine HCl (LAMISIL) 250 mg tablet Take 250 mg by mouth once daily. No current facility-administered medications for this visit. Social History Tobacco Use Smoking status: Former Smokeless tobacco: Never Vaping Use Vaping Use: Never used Substance Use Topics Alcohol use: Never Drug use: Never FAMILY HISTORY Problem Relation Age of Onset Hypertension Mother Stroke Mother Diabetes Father Hypertension Father Heart disease Father Diabetes Sister Heart disease Sister Hypertension Sister Review of Systems BP 100/76 Pulse 75 Wt 208 lb 9.6 oz (94.6kg) SpO2 98% Physical Exam Vitals and nursing note reviewed. Constitutional: Appearance: Normal appearance. She is obese. Comments: Weight down 44# from last OV HENT: Head: Normocephalic and atraumatic. Ears: Comments: Grossly normal hearing Eyes: Pupils: Pupils are equal, round, and reactive to light. Cardiovascular: Rate and Rhythm: Normal rate and regular rhythm. Pulses: Normal pulses. Heart sounds: Normal heart sounds. No murmur heard. Pulmonary: Effort: Pulmonary effort is normal. Breath sounds: Normal breath sounds. Abdominal: General: Bowel sounds are normal. Palpations: Abdomen is soft. Musculoskeletal: General: Swelling and tenderness (TTP SI joints) present. Cervical back: Neck supple. Comments: Trace BL feet swelling Skin: General: Skin is warm and dry. Capillary Refill: Capillary refill takes less than 2 seconds. Findings: No lesion or rash. Comments: Dry skin on hands Neurological: General: No focal deficit present. Mental Status: She is alert and oriented to person, place, and time. Psychiatric: Mood and Affect: Mood normal. Behavior: Behavior normal. Comments: Pleasant, talkative Medications were reviewed and verified. Assessment & Plan ASSESSMENT/PLAN: 1. Benign essential hypertension - ICD9: 401.1, ICD10: I10 (primary diagnosis) BP borderline hypotensive today. Patient has lost approximately 45 pounds since her last office visit 3 months ago, has been on Mounjaro prescribed by her densitometrist. Has also changed her diet and has been exercising more consistently. Since weight loss has noticed some dizziness and lightheadedness at times. Has not been monitoring blood pressure at home. Patient advised to monitor blood pressures at least several times a week, send readings in the next couple of weeks. If SBP remains less than or equal to 100, will adjust blood pressure medication - COMP METABOLIC PANEL - LIPID PANEL BASIC 2. Mixed hyperlipidemia - ICD9: 272.2, ICD10: E78.2 - Control undetermined, due for labs - Counseled on healthy diet and regular exercise - COMP METABOLIC PANEL - LIPID PANEL BASIC 3. Binge eating disorder - ICD9: 307.50, ICD10: F50.81 Symptoms well controlled on Vyvanse. 4. Iron deficiency anemia, unspecified iron deficiency anemia type - ICD9: 280.9, ICD10: D50.9 - CBC - FERRITIN BLD - IRON + TIBC 5. Attention deficit hyperactivity disorder (ADHD), predominantly inattentive type - ICD9: 314.00, ICD10: F90.0 Symptoms well controlled on current dose of Vyvanse. Patient denies any issues with side effects. 6. Generalized anxiety disorder - ICD9: 300.02, ICD10: F41.1 Controlled on sertraline 7. Vitamin D deficiency, unspecified - ICD9: 268.9, ICD10: E55.9 - VITAMIN D 25 HYDROXY 8. Class 2 severe obesity due to excess calories with serious comorbidity and body mass index (BMI) of 35.0 to 35.9 in adult - ICD9: 278.01, V85.35, ICD10: E66.01, Z68.35 Weight decreasing - Behavioral and pharmacological intervention and - Continue current medications 9. DDD (degenerative disc disease), lumbar - ICD9: 722.52, ICD10: M51.36 Chronic low back pain Prescribed meloxicam, patient has been reluctant to take due to concern of possible abuse potential. Patient reassured that medication is not habit-forming or addictive in any way. Discussed risk of side effects with her and explained that we will monitor for any evidence of impaired kidney function advised to take with food and avoid taking with any other NSAID. She does note that when she has taken meloxicam in the past she has felt much better and has been able to be more active throughout the day. She was strongly encouraged to use once a day as prescribed. Liz Whitfield APRN.CNP PATIENT NAME: Lamont Rosenthal DATE: April 23, 2023 SIGNATURE: Liz Whitfield APRN.CNP documented in this encounter [facility] 04-09-2023 Miscellaneous Notes Formattin g of this note is different from the original. TERESSA 01/29/23 NOV 04/23/23 Patient phones requesting refills as follows: Requested Prescriptions Pending Prescriptions Disp Refills lisdexamfetamine (VYVANSE) 40 mg capsule 30 capsule 0 Sig: Take 1 capsule by mouth once daily for 30 days. Please review and advise. Angela Marie MA documented in this encounter [facility] 02-02-2023 Miscellaneous Notes Formattin g of this note might be different from the original. VYVANSE CAP 40MG is approved through 02/02/2024 PENDING, Vyvanse 40MG capsules [place]: [id number] ANDRES Cover My Meds documented in this encounter [facility] 01-29-2023 Note HNO ID: [id number] Author: Liz Whitfield APRN.TAINA Service: ? Author Type: Nurse Practitioner Type: Progress Notes Filed: 01/29/2023 12:53 PM Note Text: Lamont Rosenthal is a 47 year old female who presents with Established Patient (Pt states she can barely lift leg without it being painful. It is painful to sit and lay. She does uses the heating pad,advil and IBU. She is also concerned if she should start vyvanse again.) Lamont presents today for c/o leg and hip pain. Also having trouble focusing and today, ended up at [facility], rather than here. States she had not been thinking about where she was going and was distracted. Has been having difficulty staying focused at work. Has been off Vyvanse since Feb. Agreeable to resuming. C/o posterior hip and low back pain. It is worse after she has been standing a lot, worked 63 hours this week. Tried using heat, which was helpful. Stopped meloxicam because she was advised by rheumatology it was not good for her. Has been using Aleve with Tylenol, which is not really helping. Depression has been doing much better. The history is provided by the patient. Hemoglobin A1C Date Value Ref Range Status 01/15/2023 5.8 4.3 - 6.0 % Final Comment: [place] [employer] guidelines indicate that patients with HgbA1c in the range 5.7-6.4% are at increased risk for development of diabetes, and intervention by lifestyle modification may be beneficial. HgbA1c greater or equal to 6.5% is considered diagnostic of diabetes. 10/23/2022 6.2 (H) 4.3 - 6.0 % Final Comment: [place] [employer] guidelines indicate that patients with HgbA1c in the range 5.7-6.4% are at increased risk for development of diabetes, and intervention by lifestyle modification may be beneficial. HgbA1c greater or equal to 6.5% is considered diagnostic of diabetes. TSH Date Value Ref Range Status 01/15/2023 0.048 (L) 0.358 - 3.740 mIU/L Final Comment: 3rd generation ultra sensitive TSH. 10/23/2022 0.250 (L) 0.358 - 3.740 mIU/L Final Comment: 3rd generation ultra sensitive TSH. Albumin, Urine Random Date Value Ref Range Status 10/23/2022 8.0 0.0 - 19.0 mg/L Final Microalbumin, Urine Random Date Value Ref Range Status 09/29/2021 10.0 0.0 - 19.0 MG/L Final PAST MEDICAL HISTORY Diagnosis Date Depression Diabetes (HCC) SHAVON (generalized anxiety disorder) Hypertension Obesity CHICHI (obstructive sleep apnea) Thyroid disease ACTIVE PROBLEM LIST Type 2 Diabetes Mellitus With Hyperglycemia ([facility]) Vitamin D Deficiency, Unspecified Attention Deficit Hyperactivity Disorder (Adhd), Predominantly Inattentive Type Benign Essential Hypertension Binge Eating Disorder Body Mass Index 40.0-44.9, Adult ([facility]) Chondromalacia of Patella Diabetic Peripheral Neuropathy ([facility]) Family History of Malignant Neoplasm of Gastrointestinal Tract Flat Wart Generalized Anxiety Disorder Obsessive-Compulsive Disorder Hypokalemia Hyperlipidemia Idiopathic Central Sleep Apnea Iron Deficiency Anemia Microalbuminuria Plantar Fasciitis, Bilateral Polycystic Ovaries Pustular Psoriasis Raynaud's Syndrome Goiter Hypothyroidism Unspecified Situational Depression Sleep Apnea, Obstructive Class 3 Severe Obesity Due to Excess Calories With Serious Comorbidity and Body Mass Index (Bmi) of 40.0 to 44.9 in Adult ([facility]) Bilateral Hip Pain Bilateral Hand Pain Acute Pain of Right Shoulder Acute Midline Low Back Pain Without Sciatica Current Outpatient Medications Medication Sig Dispense Refill MOUNJARO 7.5 mg/0.5 mL pen injector MOUNJARO 5 mg/0.5 mL pen injector MOUNJARO 2.5 mg/0.5 mL pen injector losartan (COZAAR) 25 mg tablet Take 1 tablet by mouth once daily 30 tablet 5 sertraline (ZOLOFT) 100 mg tablet Take 1 tablet by mouth once daily 30 tablet 5 gabapentin (NEURONTIN) 100 mg capsule Take 1 capsule by mouth at bedtime 30 capsule 5 triamterene-hydroCHLOROthiazide (MAXZIDE) 75-50 mg per tablet Take 1 tablet by mouth once daily. 90 tablet 1 simvastatin (ZOCOR) 20 mg tablet Take 1 tablet by mouth daily at bedtime. 90 tablet 1 ezetimibe (ZETIA) 10 mg tablet Take 1 tablet by mouth once daily. 30 tablet 5 metFORMIN (GLUCOPHAGE) 500 mg tablet Take 1 tablet by mouth twice daily. levothyroxine (SYNTHROID) 175 mcg tablet TAKE 1 TABLET BY MOUTH ONCE DAILY IN THE MORNING PREMIER TEST STRIP test strip once daily. albuterol HFA (PROVENTIL HFA, VENTOLIN HFA) 90 mcg/actuation inhaler Inhale 2 Puffs as instructed every 4 hours as needed for wheezing/shortness of breath. 1 Each 1 benzonatate (TESSALON PERLES) 100 mg capsule Take 2 capsules by mouth three times daily as needed for cough. 30 capsule 1 clobetasol (TEMOVATE) 0.05 % cream clobetasol 0.05 % topical cream potassium chloride (K-TAB) 10 mEq tablet Take 2 tablets by mouth twice daily. 180 tablet 3 vitamin B complex (B COMPLEX 1 ORAL) Take 1 tablet by mouth once da (more content not included)... 01-29-2023 Instructions Liz Whitfield APRN.CNP - 01/29/2023 11:53 AM EDT Resume Vyvanse 40mg once a day Ok to use Meloxicam 15mg once a day as needed (do not take with Ibuprofen, Aleve, Motrin, Advil or other NSAIDs, ok to use with Tylenol.) See handouts on back exercises Remember good posture! documented in this encounter [facility] 01-29-2023 History of Presen t illness Narrative Lamont Rosenthal is a 47 year old female who presents with Established Patient (Pt states she can barely lift leg without it being painful. It is painful to sit and lay. She does uses the heating pad,advil and IBU. She is also concerned if she should start vyvanse again.) Lamont presents today for c/o leg and hip pain. Also having trouble focusing and today, ended up at [facility], rather than here. States she had not been thinking about where she was going and was distracted. Has been having difficulty staying focused at work. Has been off Vyvanse since Feb. Agreeable to resuming. C/o posterior hip and low back pain. It is worse after she has been standing a lot, worked 63 hours this week. Tried using heat, which was helpful. Stopped meloxicam because she was advised by rheumatology it was not good for her. Has been using Aleve with Tylenol, which is not really helping. Depression has been doing much better. The history is provided by the patient. Hemoglobin A1C Date Value Ref Range Status 01/15/2023 5.8 4.3 - 6.0 % Final Comment: [place] [employer] guidelines indicate that patients with HgbA1c in the range 5.7-6.4% are at increased risk for development of diabetes, and intervention by lifestyle modification may be beneficial. HgbA1c greater or equal to 6.5% is considered diagnostic of diabetes. 10/23/2022 6.2 (H) 4.3 - 6.0 % Final Comment: [place] [employer] guidelines indicate that patients with HgbA1c in the range 5.7-6.4% are at increased risk for development of diabetes, and intervention by lifestyle modification may be beneficial. HgbA1c greater or equal to 6.5% is considered diagnostic of diabetes. TSH Date Value Ref Range Status 01/15/2023 0.048 (L) 0.358 - 3.740 mIU/L Final Comment: 3rd generation ultra sensitive TSH. 10/23/2022 0.250 (L) 0.358 - 3.740 mIU/L Final Comment: 3rd generation ultra sensitive TSH. Albumin, Urine Random Date Value Ref Range Status 10/23/2022 8.0 0.0 - 19.0 mg/L Final Microalbumin, Urine Random Date Value Ref Range Status 09/29/2021 10.0 0.0 - 19.0 MG/L Final PAST MEDICAL HISTORY Diagnosis Date Depression Diabetes (HCC) SHAVON (generalized anxiety disorder) Hypertension Obesity CHICHI (obstructive sleep apnea) Thyroid disease ACTIVE PROBLEM LIST Type 2 Diabetes Mellitus With Hyperglycemia ([facility]) Vitamin D Deficiency, Unspecified Attention Deficit Hyperactivity Disorder (Adhd), Predominantly Inattentive Type Benign Essential Hypertension Binge Eating Disorder Body Mass Index 40.0-44.9, Adult ([facility]) Chondromalacia of Patella Diabetic Peripheral Neuropathy ([facility]) Family History of Malignant Neoplasm of Gastrointestinal Tract Flat Wart Generalized Anxiety Disorder Obsessive-Compulsive Disorder Hypokalemia Hyperlipidemia Idiopathic Central Sleep Apnea Iron Deficiency Anemia Microalbuminuria Plantar Fasciitis, Bilateral Polycystic Ovaries Pustular Psoriasis Raynaud's Syndrome Goiter Hypothyroidism Unspecified Situational Depression Sleep Apnea, Obstructive Class 3 Severe Obesity Due to Excess Calories With Serious Comorbidity and Body Mass Index (Bmi) of 40.0 to 44.9 in Adult ([facility]cc) Bilateral Hip Pain Bilateral Hand Pain Acute Pain of Right Shoulder Acute Midline Low Back Pain Without Sciatica Current Outpatient Medications Medication Sig Dispense Refill MOUNJARO 7.5 mg/0.5 mL pen injector MOUNJARO 5 mg/0.5 mL pen injector MOUNJARO 2.5 mg/0.5 mL pen injector losartan (COZAAR) 25 mg tablet Take 1 tablet by mouth once daily 30 tablet 5 sertraline (ZOLOFT) 100 mg tablet Take 1 tablet by mouth once daily 30 tablet 5 gabapentin (NEURONTIN) 100 mg capsule Take 1 capsule by mouth at bedtime 30 capsule 5 triamterene-hydroCHLOROthiazide (MAXZIDE) 75-50 mg per tablet Take 1 tablet by mouth once daily. 90 tablet 1 simvastatin (ZOCOR) 20 mg tablet Take 1 tablet by mouth daily at bedtime. 90 tablet 1 ezetimibe (ZETIA) 10 mg tablet Take 1 tablet by mouth once daily. 30 tablet 5 metFORMIN (GLUCOPHAGE) 500 mg tablet Take 1 tablet by mouth twice daily. levothyroxine (SYNTHROID) 175 mcg tablet TAKE 1 TABLET BY MOUTH ONCE DAILY IN THE MORNING PREMIER TEST STRIP test strip once daily. albuterol HFA (PROVENTIL HFA, VENTOLIN HFA) 90 mcg/actuation inhaler Inhale 2 Puffs as instructed every 4 hours as needed for wheezing/shortness of breath. 1 Each 1 benzonatate (TESSALON PERLES) 100 mg capsule Take 2 capsules by mouth three times daily as needed for cough. 30 capsule 1 clobetasol (TEMOVATE) 0.05 % cream clobetasol 0.05 % topical cream potassium chloride (K-TAB) 10 mEq tablet Take 2 tablets by mouth twice daily. 180 tablet 3 vitamin B complex (B COMPLEX 1 ORAL) Take 1 tablet by mouth once daily. ascorbic acid, vitamin C, (VITAMIN C) 500 mg tablet Take 1 tablet by mouth once daily. amitriptyline (ELAVIL) 25 mg tablet Take 1 tablet by mouth daily at bedtime. aspirin, enteric coated (ASPIRIN, ENTERIC COATED) 81 mg EC tablet Take 1 tablet by mouth once daily. betamethasone dipropionate 0.05 % ointment Apply 30 g to affected area twice daily as needed. Biotin 10 mg tab Take 1 tablet by mouth once daily. Cholecalciferol, Vitamin D3, 125 mcg (5,000 unit) cap Take 1 capsule by mouth once daily. ferrous sulfate 325 mg (65 mg iron) tablet Take 1 tablet by mouth twice daily. folic acid 1 mg tablet Take 1 tablet by mouth once daily. TALTZ AUTOINJECTOR 80 mg/mL pen Inject 1 mL subcutaneously as directed. terbinafine HCl (LAMISIL) 250 mg tablet Take 250 mg by mouth once daily. No current facility-administered medications for this visit. Social History Tobacco Use Smoking status: Former Smokeless tobacco: Never Vaping Use Vaping Use: Never used Substance Use Topics Alcohol use: Never Drug use: Never FAMILY HISTORY Problem Relation Age of Onset Hypertension Mother Stroke Mother Diabetes Father Hypertension Father Heart disease Father Diabetes Sister Heart disease Sister Hypertension Sister Review of Systems All other systems reviewed and are negative. BP 110/68 Pulse 76 Temp 98.3 Ht 5' 4 (1.63m) Wt 252 lb (114.3kg) SpO2 97% BMI 43.23 kg/(m^2). Physical Exam Vitals and nursing note reviewed. Constitutional: Appearance: Normal appearance. She is obese. Comments: Weight down 5# from last OV HENT: Head: Normocephalic and atraumatic. Ears: Comments: Grossly normal hearing Eyes: Pupils: Pupils are equal, round, and reactive to light. Cardiovascular: Rate and Rhythm: Normal rate and regular rhythm. Pulses: Normal pulses. Heart sounds: Normal heart sounds. No murmur heard. Pulmonary: Effort: Pulmonary effort is normal. Breath sounds: Normal breath sounds. Abdominal: General: Bowel sounds are normal. Palpations: Abdomen is soft. Musculoskeletal: General: Swelling and tenderness (TTP SI joints) present. Cervical back: Neck supple. Comments: Trace BL feet swelling Skin: General: Skin is warm and dry. Capillary Refill: Capillary refill takes less than 2 seconds. Findings: No lesion or rash. Comments: Dry skin on hands Neurological: General: No focal deficit present. Mental Status: She is alert and oriented to person, place, and time. Psychiatric: Mood and Affect: Mood normal. Behavior: Behavior normal. Comments: Pleasant, talkative Assessment & Plan ASSESSMENT/PLAN: 1. Attention deficit hyperactivity disorder (ADHD), predominantly inattentive type - ICD9: 314.00, ICD10: F90.0 (primary diagnosis) Resume Vyvanse - LISDEXAMFETAMINE 40 MG CAPSULE 2. DDD (degenerative disc disease), lumbar - ICD9: 722.52, ICD10: M51.36 Chronic low back pain - NSAIDS- see orders - Patient given instructions use of medications as ordered, back care exercise program (discussed physical therapy, but she does not have time to attend), improved posture, and intermittent use of heat. - MELOXICAM 15 MG TABLET 3. Body mass index 40.0-44.9, adult (HCC) - ICD9: V85.41, ICD10: Z68.41 Weight decreasing - Behavioral intervention 4. Binge eating disorder - ICD9: 307.50, ICD10: F50.81 Resume Vyvanse - LISDEXAMFETAMINE 40 MG CAPSULE Liz Whitfield APRN.CNP PATIENT NAME: Lamont Rosenthal DATE: January 29, 2023 SIGNATURE: Liz Whitfield APRN.CNP documented in this encounter [facility] 09-18-2022 Miscellaneous Notes Formattin g of this note might be different from the original. It was not supposed to send. Disregard please. Message is empty? documented in this encounter [facility] 09-14-2022 Miscellaneous Notes Formattin g of this note is different from the original. Patient called requesting the following refill. Requested Prescriptions Pending Prescriptions Disp Refills triamterene-hydroCHLOROthiazide (MAXZIDE) 75-50 mg per tablet 90 tablet 1 Sig: Take 1 tablet by mouth once daily. simvastatin (ZOCOR) 20 mg tablet 90 tablet 1 Sig: Take 1 tablet by mouth daily at bedtime. Patient last appointment: 09/11/2022 Patient Phone numbers: [phone] (home) Request is for script(s) to be escript to pharmacy. Sydnie Lewis MA documented in this encounter [facility] 08-13-2022 Miscellaneous Notes Formattin g of this note is different from the original. Patient called requesting the following refill. Requested Prescriptions Pending Prescriptions Disp Refills losartan (COZAAR) 25 mg tablet 30 tablet 5 Sig: Take 1 tablet by mouth once daily. Patient last appointment: 07/31/2022 Patient Phone numbers: [phone] (home) Request is for script(s) to be escript to pharmacy. Sydnie Lewis MA documented in this encounter [facility] 06-23-2022 Note HNO ID: [id number] Author: Krista Patton RT(R) Service: Radiology Author Type: Technologist Type: Procedures Filed: 06/23/2022 3:08 PM Note Text: Radiology Service Progress Note PATIENT NAME: Lamont Rosenthal DATE OF SERVICE: June 23, 2022 TIME: 3:08 PM PATIENT IDENTITY VERIFICATION COMPLETED USING TWO (2) IDENTIFIERS: Name and Date of confirmed by patient verbally. FALL SCREENING: Has the patient had 2 falls in the last year or 1 fall with injury or currently using an Ambulatory Assistive Device (Walker, Cane, Wheelchair, Crutches, etc.)? No PATIENT GENDER DATA: Female. status: : No status: NO. PATIENT RELEVANT IMPLANT DATA REVIEWED: Not Applicable RADIOLOGY DEPARTMENT: General X-ray: Exam(s) Completed: Spine X-Ray(s): Lumbar AP / LAT / L5-S1 Pelvis X-Ray: Pelvis with Hip Bilateral Upper Extremity X-Ray(s): Hand, bilateral PERIPHERAL IV DATA: Not applicable SIGNED BY: RT Dora(R) June 23, 2022 3:08 PM 06-23-2022 Procedure note Radiology Service Progress Note PATIENT NAME: Lamont Rosenthal DATE OF SERVICE: June 23, 2022 TIME: 3:08 PM PATIENT IDENTITY VERIFICATION COMPLETED USING TWO (2) IDENTIFIERS: Name and Date of confirmed by patient verbally. FALL SCREENING: Has the patient had 2 falls in the last year or 1 fall with injury or currently using an Ambulatory Assistive Device (Walker, Cane, Wheelchair, Crutches, etc.)? No PATIENT GENDER DATA: Female. status: : No status: NO. PATIENT RELEVANT IMPLANT DATA REVIEWED: Not Applicable RADIOLOGY DEPARTMENT: General X-ray: Exam(s) Completed: Spine X-Ray(s): Lumbar AP / LAT / L5-S1 Pelvis X-Ray: Pelvis with Hip Bilateral Upper Extremity X-Ray(s): Hand, bilateral PERIPHERAL IV DATA: Not applicable SIGNED BY: RT Dora(R) June 23, 2022 3:08 PM documented in this encounter [facility] 05-25-2022 Miscellaneous Notes Formattin g of this note is different from the original. Pharmacy faxed requesting the following refill. Requested Prescriptions Pending Prescriptions Disp Refills sertraline (ZOLOFT) 100 mg tablet [Pharmacy Med Name: Sertraline HCl 100 MG Oral Tablet] 30 tablet 3 Sig: Take 1 tablet by mouth once daily Patient last appointment: 05/21/2022 Patient Phone numbers: [phone] (home) Request is for script(s) to be escript to pharmacy. Sydnie Lewis MA documented in this encounter [facility] 05-21-2022 Miscellaneous Notes Formattin g of this note is different from the original. Pharmacy faxed requesting the following refill. Requested Prescriptions Pending Prescriptions Disp Refills gabapentin (NEURONTIN) 100 mg capsule 30 capsule 3 Sig: Take 1 capsule by mouth daily at bedtime. Patient last appointment: 05/01/2022 Patient Phone numbers: [phone] (home) Request is for script(s) to be escript to pharmacy. Sydnie Lewis MA documented in this encounter [facility] 05-01-2022 Instructions Liz Whitfield APRN.TAINA - 05/01/2022 8:52 AM EST Have fasting labs drawn 1 week prior to next office visit Continue meds Call if shoulder/arm not improving Use moist heat 3-4x a day Check fasting sugars a few times a week, watch carb intake Continue CPAP every night Keep scheduled appts with specialists documented in this encounter [facility] 05-01-2022 History of Presen t illness Narrative This note was created using [employer]. Subjective Lamont Rosenthal is a 46 year old female. Lamont presents today for 6 mo f/u HTN, HLD, DM, CHICHI, CHULA, anxiety, ADHD, depression. She states she is feeling better now. Labs reviewed. HTN- Has not been checking BP at home. DM- has been checking fasting sugars, running 100-160s. CHICHI- wearing CPAP consistently, working well and feels refreshed. Anxiety and depression doing much better, only taking BuSpar once a day now. Feels much better since changing jobs. Has not been taking Vyvanse recently, feels she is able to focus better now. Gabapentin doing well for neuropathy L arm numb and tingling for the past 3 days. Denies neck pain but has been having pain in her L shoulder as well. The history is provided by the patient. Review of Systems Constitutional: Negative for activity change, appetite change, fatigue and unexpected weight change. HENT: Negative for hearing loss and trouble swallowing. Eyes: Negative for visual disturbance. Respiratory: Positive for cough. Negative for shortness of breath. Cardiovascular: Negative for chest pain, palpitations and leg swelling. Gastrointestinal: Negative for diarrhea, nausea and vomiting. Genitourinary: Negative for difficulty urinating. Skin: Negative for rash and wound. Neurological: Positive for numbness. Negative for dizziness, light-headedness and headaches. Psychiatric/Behavioral: Negative for dysphoric mood, sleep disturbance and suicidal ideas. The patient is not nervous/anxious. All other systems reviewed and are negative. Objective BP 120/76 Pulse 78 Ht 162.6 cm (5' 4 ) Wt 115.7 kg (255 lb) SpO2 97% BMI 43.77 kg/m Physical Exam Vitals and nursing note reviewed. Constitutional: Appearance: Normal appearance. She is obese. HENT: Head: Normocephalic and atraumatic. Ears: Comments: Grossly normal hearing Eyes: Pupils: Pupils are equal, round, and reactive to light. Cardiovascular: Rate and Rhythm: Normal rate and regular rhythm. Pulses: Normal pulses. Heart sounds: Normal heart sounds. No murmur heard. Pulmonary: Effort: Pulmonary effort is normal. Breath sounds: Normal breath sounds. Comments: Initially had slight rhonchi and exp wheeze in upper lobes which cleared with cough, otherwise CTA t/o. Occasional dry cough Abdominal: General: Bowel sounds are normal. Palpations: Abdomen is soft. Musculoskeletal: General: No swelling. Cervical back: Neck supple. Comments: L trapezius muscle tight and tender Lymphadenopathy: Cervical: No cervical adenopathy. Skin: General: Skin is warm and dry. Capillary Refill: Capillary refill takes less than 2 seconds. Findings: No lesion or rash. Comments: Dry skin on hands Neurological: General: No focal deficit present. Mental Status: She is alert and oriented to person, place, and time. Psychiatric: Mood and Affect: Mood normal. Behavior: Behavior normal. Comments: Pleasant, talkative Assessment and Plan ASSESSMENT/PLAN: 1. Benign essential hypertension - ICD9: 401.1, ICD10: I10 (primary diagnosis) - good control - Continue current medication(s) - Recommended regular aerobic exercise. - Recommend home blood pressure monitoring, to bring results in on next visit - Discussed need and benefit for weight loss. - Goal of BP <130/80 - COMP METABOLIC PANEL - LIPID PANEL BASIC 2. Type 2 diabetes mellitus with hyperglycemia, without long-term current use of insulin (HCC) - ICD9: 250.00, 790.29, ICD10: E11.65 worsening control (slightly), will repeat labs in 6 months, consider medication adjustment if no improvement at that time Hemoglobin A1C Latest Ref Rng & Units 04/23/2022 12/24/2021 12/01/2021 07/11/2021 08/04/2020 HEMOGLOBIN A1C 4.3 - 6.0 % 7.0(H) 6.8(H) 6.8(H) 7.0(H) 6.9(H) - Continue current medications - Encouraged regular aerobic exercise and weight loss - Discussed diabetic education issues of diet with patient. - BP goal of <130/80 - LDL goal of <100 - ALBUMIN/CREAT RATIO RND UR - COMP METABOLIC PANEL - CBC - LIPID PANEL BASIC - HGB A1C 3. Mixed hyperlipidemia - ICD9: 272.2, ICD10: E78.2 - good control - Continue current medication. - Encouraged following a low carbohydrate, healthy oil intake diet. - COMP METABOLIC PANEL - LIPID PANEL BASIC 4. Attention deficit hyperactivity disorder (ADHD), predominantly inattentive type - ICD9: 314.00, ICD10: F90.0 Improved, doing well without Vyvanse 5. Binge eating disorder - ICD9: 307.50, ICD10: F50.81 Improved, doing well without Vyvanse 6. Vitamin D deficiency, unspecified - ICD9: 268.9, ICD10: E55.9 - VITAMIN D1 25-DIHYDR 7. Diabetic peripheral neuropathy (HCC) - ICD9: 250.60, 357.2, ICD10: E11.42 Controlled, gabapentin working well 8. Generalized anxiety disorder - ICD9: 300.02, ICD10: F41.1 Improved 9. Iron deficiency anemia, unspecified iron deficiency anemia type - ICD9: 280.9, ICD10: D50.9 - CBC - FERRITIN BLD - IRON + TIBC 10. Microalbuminuria - ICD9: 791.0, ICD10: R80.9 11. Sleep apnea, obstructive - ICD9: 327.23, ICD10: G47.33 Doing well on current therapy - PAP THERAPY ORDER 12. Hypothyroidism unspecified - ICD9: 244.9, ICD10: E03.9 - Following with Dr. Deins, will see Wednesday 13. Hypokalemia - ICD9: 276.8, ICD10: E87.6 WNL 14. Class 3 severe obesity due to excess calories with serious comorbidity and body mass index (BMI) of 40.0 to 44.9 in adult (HCC) - ICD9: 278.01, V85.41, ICD10: E66.01, Z68.41 Stable - Behavioral intervention 15. Encounter for screening mammogram for breast cancer - ICD9: V76.12, ICD10: Z12.31 - Set up for mammogram, yearly mammogram recommended - ALICIA SCREENING 16. Trapezius muscle spasm - ICD9: 728.85, ICD10: M62.838 Moist heat 3-4x a day, discussed improving posture Liz Whitfield APRN.BODY PRESS OPERATOR documented in this encounter [facility] 03-24-2022 Miscellaneous Notes Formattin g of this note might be different from the original. Pt was notified. Order in. Pt is asking for a bw order for potassium. documented in this encounter [facility] 03-20-2022 Miscellaneous Notes Formattin g of this note is different from the original. Patient called requesting the following refill. Requested Prescriptions Pending Prescriptions Disp Refills sertraline (ZOLOFT) 100 mg tablet 30 tablet 0 Sig: Take 1 tablet by mouth once daily. Patient last appointment: Pt was sent to scheduling to make an appt. She has been out of sertraline for a week. Patient Phone numbers: [phone] (home) Request is for script(s) to be escript to pharmacy. Sydnie Lewsi MA documented in this encounter [facility] 02-24-2022 Miscellaneous Notes Formattin g of this note might be different from the original. Needs office visit. None scheduled. Refill for Vyvanse was sent to her pharmacy on 02/10 ([facility]). She should have it there. Patient called requesting the following refill. Requested Prescriptions Pending Prescriptions Disp Refills VYVANSE 40 mg capsule 30 capsule 0 Sig: Take 1 capsule by mouth once daily for 30 days. Patient last appointment: 02/10/2022 Patient Phone numbers: [phone] (home) Request is for script(s) to be escript to pharmacy. Janette Barr MA documented in this encounter [facility] 02-11-2022 Miscellaneous Notes Formattin g of this note might be different from the original. Pt states on Wednesday she is going to get her K+ lab drawn again. She just started taking med again.Once she gets back from vacation she had planned to call and make an appt. Needs OV. Last seen 10/2021. Nothing scheduled, canceled appt on 02/06. Needs to be seen every 3 months for controlled substances. Liz Whitfield APRN.TAINA documented in this encounter [facility] 01-27-2022 Miscellaneous Notes Formattin g of this note is different from the original. Patient called requesting the following refill. Requested Prescriptions Pending Prescriptions Disp Refills potassium chloride (K-TAB) 10 mEq tablet 180 tablet 3 Sig: Take 2 tablets by mouth twice daily. Patient last appointment: 01/19/2022 Patient Phone numbers: [phone] (home) Request is for script(s) to be escript to pharmacy. [facility] Joi Ortiz documented in this encounter [facility] 01-19-2022 Miscellaneous Notes Formattin g of this note might be different from the original. Patient called requesting the following refill. Pending Prescriptions Disp Refills VYVANSE 40 MG CAPSULE 30 capsule 0 Sig: Take 1 capsule by mouth once daily for 30 days. LOLA Class: C-II HÉCTOR: Yes Patient last appointment: 01/14/2022 Patient Phone numbers: [phone] (home) Request is for script(s) to be escript to pharmacy. Sydnie Lewis MA documented in this encounter [facility] 12-26-2021 Miscellaneous Notes Lamont Rosenthal called today. : 1975 Allergies: Patient has no allergy information on record. (home) [phone] (cell) Reason for call: Pt called stating she is taking meds correctly and will start taking two every day. Patient last appointment: 12/25/2021 The patients preferred pharmacy has been captured for this encounter? yes Sydnie Lewis MA documented in this encounter [facility] 12-25-2021 Miscellaneous Notes Left a detailed message. Potassium is unchanged, still a little low at 3.4. Is she taking potassium 10mEq every day? If she is, then have her increase to 2 tabs (so 20 mEq) daily. If not, then she needs to start. Repeat BMP in 2 weeks. Order in. Liz Whitfield APRN.TAINA documented in this encounter [facility] 12-10-2021 Miscellaneous Notes She does not need to come in to [facility] since we can now eRx. Also her BMP order is in [employer], so she can go to any [facility] lab and it is there... Left detailed message about medication being sent to pharmacy now and blood work is in the system to be pulled up at Any [facility] facility. Janette Barr MA Talked with Lamont and she needs a refill on her Vyvanse, she has 2 pills left and when she picks it up she would like to [facility] rblood work order also. Labs reviewed. A1C down to 6.8 (previously 7.0), which is perfect. Cholesterol is fine. Potassium is still a little low still at 3.4. Probably this is d/t her HCTZ in her BP meds. Needs K+ supplement. Start K-dur 10mEq daily. Rx sent. Check BMP in 2 weeks to make sure it is adequately replacing. Order in. documented in this encounter [facility] documented as of this encounter (statuses as of 04/24/2023) [facility] Diagnosis Hypokalemia- Primary Hypopotassemia Adult ADHD Attention deficit disorder with hyperactivity [facility] Diagnosis Hypokalemia- Primary Hypopotassemia [facility] Diagnosis Hypokalemia Hypopotassemia [facility] Diagnosis Adult ADHD Attention deficit disorder with hyperactivity [facility] Diagnosis Hypokalemia Hypopotassemia [facility] Diagnosis Adult ADHD Attention deficit disorder with hyperactivity [facility] Diagnosis Hypokalemia- Primary Hypopotassemia [facility] Diagnosis Adult ADHD Attention deficit disorder with hyperactivity [facility] Diagnosis Benign essential hypertension- Primary Essential hypertension, benign Type 2 diabetes mellitus with hyperglycemia, without long-term current use of insulin ([facility]) Mixed hyperlipidemia Attention deficit hyperactivity disorder (ADHD), predominantly inattentive type Binge eating disorder Vitamin D deficiency, unspecified Diabetic peripheral neuropathy ([facility]) Type II or unspecified type diabetes mellitus with neurological manifestations, not stated as uncontrolled Generalized anxiety disorder Iron deficiency anemia, unspecified iron deficiency anemia type Microalbuminuria Proteinuria Sleep apnea, obstructive Obstructive sleep apnea (adult) (pediatric) Hypothyroidism unspecified Hypokalemia Hypopotassemia Class 3 severe obesity due to excess calories with serious comorbidity and body mass index (BMI) of 40.0 to 44.9 in adult ([facility]) Encounter for screening mammogram for breast cancer Trapezius muscle spasm Spasm of muscle [facility] Diagnosis Bilateral hand pain Pain in limb Bilateral hip pain Pain in joint, pelvic region and thigh Acute midline low back pain without sciatica documented in this encounter [facility] note* Diagnosis Adult ADHD Attention deficit disorder with hyperactivity documented in this encounter [facility] note* Diagnosis DDD (degenerative disc disease), lumbar- Primary Degeneration of lumbar or lumbosacral intervertebral disc Attention deficit hyperactivity disorder (ADHD), predominantly inattentive type Body mass index 40.0-44.9, adult (HCC) Body Mass Index 40.0-44.9, adult Binge eating disorder documented in this encounter [facility] note* Diagnosis Attention deficit hyperactivity disorder (ADHD), predominantly inattentive type Binge eating disorder documented in this encounter [facility] note* Diagnosis Benign essential hypertension- Primary Essential hypertension, benign Mixed hyperlipidemia Binge eating disorder Iron deficiency anemia, unspecified iron deficiency anemia type Attention deficit hyperactivity disorder (ADHD), predominantly inattentive type Generalized anxiety disorder Vitamin D deficiency, unspecified Class 2 severe obesity due to excess calories with serious comorbidity and body mass index (BMI) of 35.0 to 35.9 in adult DDD (degenerative disc disease), lumbar Degeneration of lumbar or lumbosacral intervertebral disc documented in this encounter [facility] for referral (narrative)* Diagnostic Procedure Only (Routine) - Pending Review Specialty Diagnoses / Procedures Referred By Reynold iyer Referred To Contact [facility] Diagnoses Encounter for screening mammogram for breast cancer Procedures ALICIA SCREENING SCREENING MAMMOGRAPHY BI 2-VIEW BREAST INC CAD Liz Whitfield APRN.BODY PRESS OPERATOR [address] [place] [address] [facility] [address] [place], [place] [id number] Referral ID Status Reason Start Date Expiration Date Visits Requested Visits Authorized [id number] Pending Review Auto-Generat ed Referral 2 05/31/2023 [address] [facility] for referral (narrative)* Diagnostic Procedure Only (Routine) - Closed Specialty Diagnoses / Procedures Referred By Reynold t Referred To Contact XR IMAGING Diagnoses Acute midline low back pain without sciatica Procedures XR LUMBAR GENERAL 3V AP/LAT/L5-S1 RADEX SPINE LUMBOSACRAL 2/3 VIEWS Liz Whitfield APRN.BODY PRESS OPERATOR [address] [place] [address] Xr Imaging Referral ID Status Reason Start Date Expiration Date V isits Requested Visits Authorized [id number] Closed Auto-Generate d Referral 06/19/2022 2023 1 1 * Diagnostic Procedure Only (Routine) - Closed Specialty Diagnoses / Procedures Referred By Contac t Referred To Contact XR IMAGING Diagnoses Bilateral hip pain Procedures XR HIP BILATERAL 5V PEL/AP/LAT EACH HIP RADEX HIPS BILATERAL WITH PELVIS MINIMUM 5 VIEWS Jorge, Liz Nolasco PEARL CUTTER.BODY PRESS OPERATOR [address] [place] [address] Xr Imaging Referral ID Status Reason Start Date Expiration Date V isits Requested Visits Authorized [id number] Closed Auto-Generate d Referral 06/19/2022 2023 1 1 * Diagnostic Procedure Only (Routine) - Closed Specialty Diagnoses / Procedures Referred By Contac t Referred To Contact XR IMAGING Diagnoses Bilateral hand pain Procedures XR HAND GENERAL 3V PA/LAT/OBL BILATERAL RADEX HAND MINIMUM 3 VIEWS Jorge, Liz Nolasco PEARL CUTTER.BODY PRESS OPERATOR [address] [place] [address] Xr Imaging Referral ID Status Reason Start Date Expiration Date V isits Requested Visits Authorized [id number] Closed Auto-Generate d Referral 06/19/2022 2023 [facility] Diagnostic Procedure Only (Routine) - Closed Specialty Diagnoses / Procedures Referred By Contac t Referred To Contact XR IMAGING Diagnoses Acute midline low back pain without sciatica Procedures XR LUMBAR GENERAL 3V AP/LAT/L5-S1 RADEX SPINE LUMBOSACRAL 2/3 VIEWS Liz Whitfield PEARL CUTTER.BODY PRESS OPERATOR [address] [place] [address] Xr Imaging Referral ID Status Reason Start Date Expiration Date V isits Requested Visits Authorized [id number] Closed Auto-Generate d Referral 06/19/2022 2023 1 1 [facility] Summary Purpose Family History No Family History Records FoundNo Family History Records FoundNo Family History Records Found Advance Directives No Advanced Directives Records FoundNo Advanced Directives Records FoundNo Advanced Directives Records Found Reason for Referral Specialty Diagnoses / Procedures Referred By Contac t Referred To Contact Diagnoses Attention deficit hyperactivity disorder (ADHD), predominantly inattentive type Binge eating disorder Liz Whitfield, PEARL CUTTER.BODY PRESS OPERATOR [address] [place] [address] Referral ID Status Reason Start Date Expiration Date V isits Requested Visits Authorized [id number] Pending Review 1 1 Additional Source Comments INFORMATION SOURCE (unrecogn ized section and content) DATE CREATED AUTHOR AUTHOR'S ORGANIZ ATION 11/18/2021 [facility] [place] DATE CREATED AUTHOR AUTHOR'S ORGANIZ ATION 06/19/2023 [facility] Source Comments (unrecognize d section and content) In the event this informatio n is protected by the Federal Confidentiality of Alcohol and Drug Abuse Patient Records regulations: The Federal rules restrict any use of the information to criminally investigate or prosecute any alcohol or drug abuse patient.[facility] the event this information is protected by the Federal Confidentiality of Alcohol and Drug Abuse Patient Records regulations: The Federal rules restrict any use of the information to criminally investigate or prosecute any alcohol or drug abuse patient.[facility] the event this information is protected by the Federal Confidentiality of Alcohol and Drug Abuse Patient Records regulations: The Federal rules restrict any use of the information to criminally investigate or prosecute any alcohol or drug abuse patient.[facility] the event this information is protected by the Federal Confidentiality of Alcohol and Drug Abuse Patient Records regulations: The Federal rules restrict any use of the information to criminally investigate or prosecute any alcohol or drug abuse patient.[facility] the event this information is protected by the Federal Confidentiality of Alcohol and Drug Abuse Patient Records regulations: The Federal rules restrict any use of the information to criminally investigate or prosecute any alcohol or drug abuse patient.[facility] the event this information is protected by the Federal Confidentiality of Alcohol and Drug Abuse Patient Records regulations: The Federal rules restrict any use of the information to criminally investigate or prosecute any alcohol or drug abuse patient.[facility] the event this information is protected by the Federal Confidentiality of Alcohol and Drug Abuse Patient Records regulations: The Federal rules restrict any use of the information to criminally investigate or prosecute any alcohol or drug abuse patient.[facility] the event this information is protected by the Federal Confidentiality of Alcohol and Drug Abuse Patient Records regulations: The Federal rules restrict any use of the information to criminally investigate or prosecute any alcohol or drug abuse patient.[facility] the event this information is protected by the Federal Confidentiality of Alcohol and Drug Abuse Patient Records regulations: The Federal rules restrict any use of the information to criminally investigate or prosecute any alcohol or drug abuse patient.[facility] the event this information is protected by the Federal Confidentiality of Alcohol and Drug Abuse Patient Records regulations: The Federal rules restrict any use of the information to criminally investigate or prosecute any alcohol or drug abuse patient.[facility] the event this information is protected by the Federal Confidentiality of Alcohol and Drug Abuse Patient Records regulations: The Federal rules restrict any use of the information to criminally investigate or prosecute any alcohol or drug abuse patient.[facility] the event this information is protected by the Federal Confidentiality of Alcohol and Drug Abuse Patient Records regulations: The Federal rules restrict any use of the information to criminally investigate or prosecute any alcohol or drug abuse patient.[facility] the event this information is protected by the Federal Confidentiality of Alcohol and Drug Abuse Patient Records regulations: The Federal rules restrict any use of the information to criminally investigate or prosecute any alcohol or drug abuse patient.[facility] the event this information is protected by the Federal Confidentiality of Alcohol and Drug Abuse Patient Records regulations: The Federal rules restrict any use of the information to criminally investigate or prosecute any alcohol or drug abuse patient.[facility] the event this information is protected by the Federal Confidentiality of Alcohol and Drug Abuse Patient Records regulations: The Federal rules restrict any use of the information to criminally investigate or prosecute any alcohol or drug abuse patient.[facility] the event this information is protected by the Federal Confidentiality of Alcohol and Drug Abuse Patient Records regulations: The Federal rules restrict any use of the information to criminally investigate or prosecute any alcohol or drug abuse patient.[facility] the event this information is protected by the Federal Confidentiality of Alcohol and Drug Abuse Patient Records regulations: The Federal rules restrict any use of the information to criminally investigate or prosecute any alcohol or drug abuse patient.[facility] the event this information is protected by the Federal Confidentiality of Alcohol and Drug Abuse Patient Records regulations: The Federal rules restrict any use of the information to criminally investigate or prosecute any alcohol or drug abuse patient.[facility] the event this information is protected by the Federal Confidentiality of Alcohol and Drug Abuse Patient Records regulations: The Federal rules restrict any use of the information to criminally investigate or prosecute any alcohol or drug abuse patient.[facility] Hospital[facility] the event this information is protected by the Federal Confidentiality of Alcohol and Drug Abuse Patient Records regulations: The Federal rules restrict any use of the information to criminally investigate or prosecute any alcohol or drug abuse patient.[facility] Hospital[facility] the event this information is protected by the Federal Confidentiality of Alcohol and Drug Abuse Patient Records regulations: The Federal rules restrict any use of the information to criminally investigate or prosecute any alcohol or drug abuse patient.[facility] Hospital[facility] the event this information is protected by the Federal Confidentiality of Alcohol and Drug Abuse Patient Records regulations: The Federal rules restrict any use of the information to criminally investigate or prosecute any alcohol or drug abuse patient.[facility] Hospital[facility] the event this information is protected by the Federal Confidentiality of Alcohol and Drug Abuse Patient Records regulations: The Federal rules restrict any use of the information to criminally investigate or prosecute any alcohol or drug abuse patient.[facility] the event this information is protected by the Federal Confidentiality of Alcohol and Drug Abuse Patient Records regulations: The Federal rules restrict any use of the information to criminally investigate or prosecute any alcohol or drug abuse patient.[facility] Hospital[facility] the event this information is protected by the Federal Confidentiality of Alcohol and Drug Abuse Patient Records regulations: The Federal rules restrict any use of the information to criminally investigate or prosecute any alcohol or drug abuse patient.[facility] Hospital[facility] the event this information is protected by the Federal Confidentiality of Alcohol and Drug Abuse Patient Records regulations: The Federal rules restrict any use of the information to criminally investigate or prosecute any alcohol or drug abuse patient.[facility] HospitalIn the event this information is protected by the Federal Confidentiality of Alcohol and Drug Abuse Patient Records regulations: The Federal rules restrict any use of the information to criminally investigate or prosecute any alcohol or drug abuse patient.[facility] HospitalIn the event this information is protected by the Federal Confidentiality of Alcohol and Drug Abuse Patient Records regulations: The Federal rules restrict any use of the information to criminally investigate or prosecute any alcohol or drug abuse patient.[facility] HospitalIn the event this information is protected by the Federal Confidentiality of Alcohol and Drug Abuse Patient Records regulations: The Federal rules restrict any use of the information to criminally investigate or prosecute any alcohol or drug abuse patient.[facility] HospitalIn the event this information is protected by the Federal Confidentiality of Alcohol and Drug Abuse Patient Records regulations: The Federal rules restrict any use of the information to criminally investigate or prosecute any alcohol or drug abuse patient.[facility] HospitalIn the event this information is protected by the Federal Confidentiality of Alcohol and Drug Abuse Patient Records regulations: The Federal rules restrict any use of the information to criminally investigate or prosecute any alcohol or drug abuse patient.[facility] HospitalIn the event this information is protected by the Federal Confidentiality of Alcohol and Drug Abuse Patient Records regulations: The Federal rules restrict any use of the information to criminally investigate or prosecute any alcohol or drug abuse patient.[facility] HospitalIn the event this information is protected by the Federal Confidentiality of Alcohol and Drug Abuse Patient Records regulations: The Federal rules restrict any use of the information to criminally investigate or prosecute any alcohol or drug abuse patient.[facility] Reason for Visit (unrecogniz ed section and content) Reason Onset Date Comments Refill Request 01/19/2022 Refill Request 01/21/2022 Reason Onset Date Comments Refill Request 01/27/2022 Reason Onset Date Comments Refill Request 03/20/2022 Reason Comments Orders Reason Comments Follow Up Reason Onset Date Comments Refill Request 05/21/2022 Reason Comments Refill Request Reason Onset Date Comments Refill Request 02/24/2022 Reason Onset Date Comments Refill Request 08/13/2022 Reason Onset Date Comments Refill Request 09/14/2022 Reason Comments Erroneous encounter-disregard Reason Comments Established Patient Pt states she can ba rely lift leg without it being painful. It is painful to sit and lay. She does uses the heating pad,advil and IBU. She is also concerned if she should start vyvanse again. Reason Comments APPROVED, Vyvanse 40MG capsules Reason Onset Date Comments Refill Request 04/09/2023 Reason Comments Follow Up 3 month Patient cuco hinds flu vaccine Care Teams (unrecognized sec tion and content) Senior Marketing Manager Relationship Specialty Start Date End Date Liz Whitfield, PEARL CUTTER.BODY PRESS OPERATOR [address] [place] [address] PCP - General Family Practice 01/19/22 Senior Marketing Manager Relationship Specialty Start Date End Date Liz Whitfield, PEARL CUTTER.BODY PRESS OPERATOR [address] [place] [address] PCP - General Family Practice 01/19/22 Senior Marketing Manager Relationship Specialty Start Date End Date Liz Whitfield, PEARL CUTTER.BODY PRESS OPERATOR [address] [place] [address] PCP - General Family Practice 01/19/22 Senior Marketing Manager Relationship Specialty Start Date End Date Liz Whitfield, PEARL CUTTER.BODY PRESS OPERATOR [address] [place] [address] PCP - General Family Medicine 01/19/22 Senior Marketing Manager Relationship Specialty Start Date End Date Liz Whitfield, PEARL CUTTER.BODY PRESS OPERATOR [address] [place] [address] PCP - General Family Medicine 01/19/22 Senior Marketing Manager Relationship Specialty Start Date End Date Liz Whitfield, PEARL CUTTER.BODY PRESS OPERATOR [address] [place] [address] PCP - General Family Medicine 01/19/22 Senior Marketing Manager Relationship Specialty Start Date End Date Liz Whitfield, PEARL CUTTER.BODY PRESS OPERATOR [address] [place] [address] PCP - General Family Medicine 01/19/22 Hodan Mejia MD [address] [place] [address] Family Medicine 04/16/22 Senior Marketing Manager Relationship Specialty Start Date End Date Liz Whitfield, PEARL CUTTER.BODY PRESS OPERATOR [address] [place] [address] PCP - General Family Medicine 01/19/22 Hodan Mejia MD [address] [place] [address] Family Medicine 04/16/22 Senior Marketing Manager Relationship Specialty Start Date End Date Liz Whitfield, PEARL CUTTER.BODY PRESS OPERATOR [address] [place] [address] PCP - General Family Medicine 01/19/22 Hodan Mejia MD [address] [address] Family Medicine 04/16/22 Senior Marketing Manager Relationship Specialty Start Date End Date Liz Whitfield, PEARL CUTTER.BODY PRESS OPERATOR [address] [place] [address] PCP - General Family Medicine 01/19/22 Hodan Mejia MD [address] [place] [address] Family Medicine 04/16/22 Senior Marketing Manager Relationship Specialty Start Date End Date Liz Whitfield, PEARL CUTTER.BODY PRESS OPERATOR [address] [place] [address] PCP - General Family Medicine 01/19/22 Hdoan Mejia MD [address] [place] [address] Family Medicine 04/16/22 Senior Marketing Manager Relationship Specialty Start Date End Date Liz Whitfield, PEARL CUTTER.BODY PRESS OPERATOR [address] [place] [address] PCP - General Family Medicine 01/19/22 Hodan Mejia MD [address] [place] [address] Family Medicine 04/16/22 Senior Marketing Manager Relationship Specialty Start Date End Date Liz Whitfield, PEARL CUTTER.BODY PRESS OPERATOR [address] [place] [address] PCP - General Family Medicine 01/19/22 Hodan Mejia MD [address] [place] [address] Family Medicine 04/16/22 Senior Marketing Manager Relationship Specialty Start Date End Date Liz Whitfield, PEARL CUTTER.BODY PRESS OPERATOR [address] [place] [address] PCP - General Family Medicine 01/19/22 Hodan Mejia MD [address] [place] [place] [address] Family Medicine 04/16/22 Steven Denis MD [address] [place], [place] [id number] Endocrinology 08/10/22 Senior Marketing Manager Relationship Specialty Start Date End Date Liz Whitfield, PEARL CUTTER.BODY PRESS OPERATOR [address] [place] [address] PCP - General Family Medicine 01/19/22 Hodan Mejia MD [address] [place] [address] Family Medicine 04/16/22 Steven Denis MD [address] [place] [address] Endocrinology 08/10/22 Senior Marketing Manager Relationship Specialty Start Date End Date Liz Whitfield, PEARL CUTTER.BODY PRESS OPERATOR [address] [place] [address] PCP - General Family Medicine 01/19/22 Hodan Mejia MD [address] [place] [address] Family Medicine 04/16/22 Steven Denis MD [address] [place] [address] Endocrinology 08/10/22 Senior Marketing Manager Relationship Specialty Start Date End Date Liz Whitfield, PEARL CUTTER.BODY PRESS OPERATOR [address] [facility] [place] [address] PCP - General Family Medicine 01/19/22 Hodan Mejia MD [address] [place] [address] Family Medicine 04/16/22 Steven Denis MD [address] [place] [address] Endocrinology 08/10/22 Senior Marketing Manager Relationship Specialty Start Date End Date Liz Whitfield, PEARL CUTTER.BODY PRESS OPERATOR [address] [facility] [address] [place] [address] PCP - General Family Medicine 01/19/22 Hodan Mejia MD [address] [place] [address] Family Medicine 04/16/22 Steven Denis MD [address] [place] [address] Endocrinology 08/10/22 Senior Marketing Manager Relationship Specialty Start Date End Date Liz Whitfield, PEARL CUTTER.BODY PRESS OPERATOR [address] [facility] [address] [place] [address] PCP - General Family Medicine 01/19/22 Hodan Mejia MD [address] [place] [address] Family Medicine 04/16/22 Steven Denis MD [address] [place] [address] Endocrinology 08/10/22 Senior Marketing Manager Relationship Specialty Start Date End Date Liz Whitfield PEARL CUTTER.BODY PRESS OPERATOR [address] [facility] [address] [place] [phone] PCP - General Family Medicine 01/19/22 Hodan Mejia MD [address] [place], [place] [address] Family Medicine 04/16/22 Steven Denis MD [address] [place], [place] [phone] Endocrinology 08/10/22 Senior Marketing Manager Relationship Specialty Start Date End Date Liz Whitfield PEARL CUTTER.BODY PRESS OPERATOR [address] [facility] [address] [place] [address] PCP - General Family Medicine 01/19/22 Hodan Mejia MD [address] [place], [place] [address] [phone] Family Medicine 04/16/22 Steven Denis MD [address] [place] [address] Endocrinology 08/10/22 Senior Marketing Manager Relationship Specialty Start Date End Date Liz Whitfield, PEARL CUTTER.BODY PRESS OPERATOR [address] [facility] [address] [place] [phone] PCP - General Family Medicine 01/19/22 Hodan Mejia MD [address] [place], [place] [address] [phone] Family Medicine 04/16/22 Steven Denis MD [address] [place] [address] Endocrinology 08/10/22 Senior Marketing Manager Relationship Specialty Start Date End Date Liz Whitfield, PEARL CUTTER.BODY PRESS OPERATOR [address] [facility] [address] [place] [phone] PCP - General Family Medicine 01/19/22 Hodan Mejia MD [address] [place], [place] [address] [phone]- Family Medicine 04/16/22 Steven Denis MD [address] [place] [address] Endocrinology 08/10/22 FOR RECORDS PERTAINING TO PATIENTS WHO ARE OR HAVE BEEN ENROLLED IN A CHEMICAL DEPENDENCY/SUBSTANCEABUSE PROGRAM, SOME INFORMATION MAY BE OMITTED. This clinical summary was aggregated from multiple sources. Caution should be exercised in using it in the provision of clinical care. This summary normalizes information from multiple sources, and as a consequence, information in this document may materially change the coding, format and clinical context of patient data. In addition, data may be omitted in some cases. CLINICAL DECISIONS SHOULD BE BASED ON THE PRIMARY CLINICAL RECORDS. [facility]. provides no warranty or guarantee of the accuracy or completeness of information in this document.
[2023-07-13 18:08] LABS: Hepatitis B Core Ab Total Negative (Negative); QNTFERON TB Mitogen Value > 10.00 IU/mL (.); QNTFERON TB Nil Value 0.06 IU/mL (.); QNTFERON TB1+ Ag Value 0.03 IU/mL (.); QNTFERON TB2+ Ag Value 0 IU/mL (.); QNTIFERON TB Positive Criteria Negative (Negative)
== END | disposition home or self-care (01) ==
PROVIDERS: PCP Nurse Practitioner Family; Referring Provider Physician Assistant Medical; Visit Provider Physician Assistant Medical
DX: L40.0 Psoriasis vulgaris (principal); Z79.899 Other long term (current) drug therapy
CPT/HCPCS: 36415; 86480; 86704